=== PATIENT | female | born 1940 | race Caucasian/White ===

== ENCOUNTER 2017-08-24 21:33 | Inpatient (IN) | payer MEDICARE, MEDICAID ==
[2017-08-24] MEDS ORDERED: Furosemide 20 MG/2 ML VIAL ONE (21:36)
[2017-08-24] MEDS ORDERED: Furosemide 40 MG/4 ML VIAL IVPUSH ONE (21:41)
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
[2017-08-24] MEDS: Sodium Chloride 0.9% 10 ML Syringe FLUSH PRN ×2 (22:10→22:11)
[2017-08-24] MEDS ORDERED: Albuterol/Ipratropium 3.0-0.5 MG/3 ML Neb Soln NEB ONE (22:43)
[2017-08-24] MEDS ORDERED: cefTRIAXone 1 GM in Sodium Chloride 0.9% 100 ML IV SCH (23:45)
[2017-08-25] MEDS ORDERED: Ibuprofen 400 MG Tab PO PRN (00:04)
[2017-08-25] MEDS ORDERED: Magnesium Hydroxide 400 MG/5 ML Susp 30 ML Cup PO PRN (00:04)
[2017-08-25] MEDS ORDERED: RISPERIDONE PO SCH (00:15)
[2017-08-25] MEDS ORDERED: Multivitamin Tab PO SCH (00:15)
[2017-08-25] MEDS ORDERED: Acetaminophen 325 MG Tab PO SCH (00:15)
[2017-08-25] MEDS: Sodium Chloride 0.9% 10 ML Syringe FLUSH PRN ×2 (00:17→02:55)
[2017-08-25] MEDS ORDERED: Acetaminophen 325 MG Tab PO PRN (01:30)
[2017-08-25] MEDS: cefTRIAXone 1 GM in Sodium Chloride 0.9% 100 ML IV SCH ×2 (02:53→13:07)
[2017-08-25] MEDS: Acetaminophen 325 MG Tab PO SCH ×4 (07:39→17:27)
[2017-08-25] MEDS: QUEtiapine 100 MG Tab PO SCH ×4 (07:40→20:25)
[2017-08-25] MEDS: levETIRAcetam 500 MG Tab PO SCH ×3 (07:40→17:28)
[2017-08-25] MEDS: Multivitamin Tab PO SCH ×2 (07:41→07:57)
[2017-08-25] MEDS: Potassium Chloride 10 MEQ Tab.ER PO SCH ×2 (07:41→07:55)
[2017-08-25] MEDS: Pantoprazole 40 MG Tab.CR PO SCH ×2 (07:41→07:55)
[2017-08-25] MEDS: Gabapentin 100 MG Cap PO SCH ×4 (07:41→17:28)
[2017-08-25] MEDS ORDERED: Non-Formulary Medication 1 Each (Ranitidine Hcl [Zantac] 150 MG) PO SCH (08:00)
[2017-08-25] MEDS: LACOSAMIDE 50 MG PO SCH ×2 (09:00→17:29)
[2017-08-25] MEDS: Sodium Chloride 0.9% 1,000 ML IV SCH ×2 (10:03→17:15)
--- NOTE | 2017-08-25 10:21 | PCM.PN ---
- General Info Date of Service: 08/25/17 Functional Status: Reports: Other (Shortness of breath) - Review of Systems General: Reports: Weakness HEENT: Reports: No Symptoms Pulmonary: Reports: Shortness of Breath Cardiovascular: Reports: Orthopnea Gastrointestinal: Reports: No Symptoms Genitourinary: Reports: No Symptoms Musculoskeletal: Reports: No Symptoms, Shoulder Pain (Right humeral fracture), Foot Pain Skin: Reports: No Symptoms Neurological: Reports: Confusion Psychiatric: Reports: Confusion, Anxiety - Patient Data Vitals - Most Recent: Last Vital Signs Temp 99.1 F 08/25/17 08:00 Pulse 115 H 08/25/17 08:00 Resp 16 08/25/17 04:30 BP 76/53 L 08/25/17 08:00 Pulse Ox 97 08/25/17 09:00 Weight - Most Recent: 136 lb 0.015 oz I&O - Last 24 Hours: Intake & Output 08/24/17 08/25/17 08/25/17 22:59 06:59 14:59 Intake Total 370 Output Total 1200 Balance -830 Lab Results Last 24 Hours: Laboratory Results - last 24 hr 08/25/17 Range/Units 07:35 WBC 19.1 H (4.0-10.2) K/uL RBC 3.74 L (3.77-5.09) M/uL Hgb 12.1 (11.7-15.5) g/dL Hct 37.1 (34.0-46.0) % MCV 99.2 H (84.0-98.0) fL MCH 32.4 (28.2-33.3) pg MCHC 32.6 (31.7-36.0) g/dL RDW 13.6 (11.2-14.1) % Plt Count 256 (150-350) K/uL Neut % (Auto) 86.9 H (45.0-80.0) % Lymph % (Auto) 7.6 L (10.0-50.0) % [place] % (Auto) 5.3 (2.0-14.0) % Eos % (Auto) 0.1 (0.0-5.0) % Baso % (Auto) 0.1 (0.0-2.0) % Neut # (Auto) 16.60 H (1.40-7.00) K/uL Lymph # (Auto) 1.44 (0.50-3.50) K/uL [place] # (Auto) 1.01 H (0.00-1.00) K/uL Eos # (Auto) 0.01 (0.00-0.50) K/uL Baso # (Auto) 0.01 (0.00-0.20) K/uL Med Orders - Current: Current Medications Acetaminophen (Tylenol) 650 mg PO TID [facility] Last Admin: 08/25/17 07:57 Dose: Not Given Acetaminophen (Tylenol) 650 mg PO Q4H PRN PRN Reason: Pain/Fever Gabapentin (Neurontin) 100 mg PO TID [facility] Last Admin: 08/25/17 07:55 Dose: Not Given Ceftriaxone Sodium 1 gm/ (Sodium Chloride) 100 mls @ 200 mls/hr IV Q12H [facility] Last Admin: 08/25/17 02:53 Dose: 200 mls/hr Vancomycin HCl 1 gm/ Sodium (Chloride) 250 mls @ 165 mls/hr IV Q24H [facility] Sodium Chloride (Normal Saline) 1,000 mls @ 150 mls/hr IV ASDIRECTED [facility] Last Admin: 08/25/17 10:03 Dose: 150 mls/hr Ibuprofen (Motrin) 400 mg PO Q6H PRN PRN Reason: Pain Levetiracetam (Keppra) 1,000 mg PO BID [facility] Last Admin: 08/25/17 07:55 Dose: Not Given Magnesium Hydroxide (Milk Of Magnesia) 30 ml PO DAILY PRN PRN Reason: Heartburn Multivitamins/Minerals/Vitamin C (Tab-A-Vitaliy) 1 tab PO DAILY [facility] Last Admin: 08/25/17 07:57 Dose: Not Given Non-Formulary Medication (Lacosamide [Vimpat]) 50 mg PO BID [facility] Non-Formulary Medication (Lurasidone Hcl [Latuda]) 80 mg PO BEDTIME [facility] Pantoprazole Sodium (Protonix) 40 mg PO DAILY [facility] Last Admin: 08/25/17 07:55 Dose: Not Given Polyethylene Glycol (Miralax) 17 gm PO BEDTIME [facility] Potassium Chloride (Klor-Con 10) 10 meq PO DAILY [facility] Last Admin: 08/25/17 07:55 Dose: Not Given Quetiapine Fumarate (Seroquel) 100 mg PO BID [facility] Last Admin: 08/25/17 07:56 Dose: Not Given Quetiapine Fumarate (Seroquel) 300 mg PO BEDTIME [facility] Sodium Chloride (Saline Flush) 10 ml FLUSH ASDIRECTED PRN PRN Reason: Keep Vein Open Last Admin: 08/25/17 02:55 Dose: 10 ml Vancomycin HCl (Pharmacy To Dose - Vancomycin) 1 dose .XX ASDIRECTED [facility] Discontinued Medications Albuterol/Ipratropium (Duoneb 3.0-0.5 Mg/3 Ml) 3 ml NEB ONETIME ONE Stop: 08/24/17 22:44 Last Admin: 08/24/17 23:02 Dose: 3 ml Furosemide (Lasix) Confirm Administered Dose 20 mg .ROUTE .STK-MED ONE Stop: 08/24/17 21:37 Last Admin: 08/24/17 21:39 Dose: 10 mg Furosemide (Lasix) 40 mg IVPUSH NOW ONE Stop: 08/24/17 21:42 Last Admin: 08/24/17 21:53 Dose: 30 mg Ceftriaxone Sodium 1 gm/ (Sodium Chloride) 100 mls @ 200 mls/hr IV Q12H [facility] Last Admin: 08/25/17 03:07 Dose: Not Given Vancomycin HCl 1 gm/ Sodium (Chloride) 250 mls @ 165 mls/hr IV ONETIME ONE Stop: 08/25/17 01:30 Last Admin: 08/25/17 00:16 Dose: 165 mls/hr Multivitamins/Minerals/Vitamin C (Tab-A-Vitaliy) 1 tab PO DAILY [facility] Last Admin: 08/25/17 03:10 Dose: Not Given Non-Formulary Medication (Ranitidine Hcl [Zantac]) 150 mg PO BID [facility] - Exam Quality Assessment: Supplemental Oxygen, Urine Catheter General: Mild Distress HEENT: Pupils Equal, Pupils Reactive, EOMI, Mucous Membr. Moist/[place] Neck: Supple Lungs: Decreased Breath Sounds, Rales (In basis) Cardiovascular: Regular Rate, Regular Rhythm, No Murmurs GI/Abdominal Exam: Normal Bowel Sounds (Female) Exam: Deferred Back Exam: Normal Inspection, Full Range of Motion Extremities: Normal Inspection, Normal Range of Motion, Non-Tender, No Pedal Edema, Normal Capillary Refill Skin: Warm, Dry, Intact Neurological: Cranial Nerves Intact Psy/Mental Status: Anxious, Agitated (Secondary to shortness of breath) - Problem List & Annotations (1) CHF (congestive heart failure) SNOMED Code(s): 59416485 Code(s): I50.9 - HEART FAILURE, UNSPECIFIED Status: Acute Priority: Low Current Visit: Yes Annotation/Comment:: Acute on chronic improve with diuresis chest x-ray revealed pneumonia white count elevated patient started on Lasix and antibiotic for comfort care patient is hypotensive secondary to possible sepsis (2) Pneumonia SNOMED Code(s): 982070586 Code(s): J18.9 - PNEUMONIA, UNSPECIFIED ORGANISM Status: Acute Current Visit: Yes Qualifiers: Pneumonia type: due to unspecified organism Annotation/Comment:: Patient x-ray revealed bilateral basal pneumonia antibiotic started for comfort care patient has severe hypoxia also placed on oxygen for comfort care patient also has hypoxia and hypotension as cold morbidity (3) Hypoxemia SNOMED Code(s): 754392553 Code(s): R09.02 - HYPOXEMIA Status: Acute Current Visit: Yes Annotation /Comment:: Hypoxia secondary to CHF and pneumonia patient diuresed and started on antibiotics - Problem List Review Problem List Initiated/Reviewed/Updated: Yes - My Orders Last 24 Hours: My Active Orders 08/25/17 00:01 Patient Status [ADT] Routine Vital Signs [RC] Q4HR 08/25/17 00:04 Ibuprofen [Motrin] 400 mg PO Q6H PRN Magnesium Hydroxide [Milk of Magnesia] 30 ml PO DAILY PRN 08/25/17 01:00 cefTRIAXone [Rocephin] 1 gm Sodium Chloride 0.9% [Normal Saline] 100 ml IV Q12H 08/25/17 01:19 Telemetry Monitoring [Cardiac Monitoring] [RC] Q2HR Code Status [Resuscitation Status] Routine 08/25/17 01:30 Acetaminophen [Tylenol] 650 mg PO Q4H PRN 08/25/17 08:00 Acetaminophen [Tylenol] 650 mg PO TID Gabapentin [Neurontin] 100 mg PO TID Lacosamide [Vimpat] 50 mg PO BID Multivitamins [Tab-A-Vitaliy] 1 tab PO DAILY Pantoprazole [ProTONIX] 40 mg PO DAILY Potassium Chloride [Klor-Con 10] 10 meq PO DAILY QUEtiapine [SEROquel] 100 mg PO BID levETIRAcetam [Keppra] 1,000 mg PO BID 08/25/17 09:15 Sodium Chloride 0.9% [Normal Saline] 1,000 ml IV ASDIRECTED 08/25/17 12:00 POC Glucose [Blood Glucose Check, Bedside] [RC] QIDACANDBED 08/25/17 20:00 Lurasidone HCl [Latuda] 80 mg PO BEDTIME Polyethylene Glycol 3350 [MiraLAX] 17 gm PO BEDTIME QUEtiapine [SEROquel] 300 mg PO BEDTIME 08/25/17 21:00 Vancomycin 1 gm Sodium Chloride 0.9% [Normal Saline] 250 ml IV Q24H 08/25/17 Breakfast Regular Diet [DIET]
[2017-08-25] MEDS: LURASIDONE HCL 80 MG PO SCH (20:25)
[2017-08-25] MEDS: Polyethylene Glycol 3350 Powder 17 GM Packet PO SCH ×2 (20:26→20:37)
[2017-08-26] MEDS: cefTRIAXone 1 GM in Sodium Chloride 0.9% 100 ML IV SCH ×2 (01:09→12:39)
[2017-08-26] MEDS: Sodium Chloride 0.9% 1,000 ML IV SCH (02:09)
[2017-08-26] MEDS: Potassium Chloride 10 MEQ Tab.ER PO SCH (09:12)
[2017-08-26] MEDS: levETIRAcetam 500 MG Tab PO SCH ×2 (09:12→18:01)
[2017-08-26] MEDS: Gabapentin 100 MG Cap PO SCH ×3 (09:12→18:02)
[2017-08-26] MEDS: Pantoprazole 40 MG Tab.CR PO SCH (09:12)
[2017-08-26] MEDS: LACOSAMIDE 50 MG PO SCH ×2 (09:12→18:02)
[2017-08-26] MEDS: QUEtiapine 100 MG Tab PO SCH ×2 (09:13→20:50)
[2017-08-26] MEDS: Acetaminophen 325 MG Tab PO SCH ×3 (09:13→18:02)
[2017-08-26] MEDS: Sodium Chloride 0.9% 10 ML Syringe FLUSH PRN ×3 (09:13→20:53)
[2017-08-26] MEDS: Multivitamin Tab PO SCH (09:13)
[2017-08-26] MEDS ORDERED: Sodium Chloride 0.9% 1,000 ML IV SCH (09:15)
--- NOTE | 2017-08-26 10:07 | PCM.PN ---
- General Info Date of Service: 08/26/17 Admission Dx/Problem (Free Text): CHF Subjective Update: Patient is an extremely poor historian secondary to her baseline organic brain syndrome Functional Status: Reports: Pain Controlled, Tolerating Diet (Although some possible aspiration), Urinating, New Symptoms (Aspiration as above). Denies: Ambulating, Incentive Spirometry Pain Score: 0 - Review of Systems General: Reports: Weakness (Stable chronic). Denies: Fever, Fatigue, Malaise, Chills, Night Sweats HEENT: Reports: No Symptoms Pulmonary: Reports: Cough. Denies: Shortness of Breath, Pleuritic Chest Pain, Sputum, Hemoptysis, Wheezing Cardiovascular: Reports: Edema (Dependent) Gastrointestinal: Reports: No Symptoms Genitourinary: Reports: Incontinence Musculoskeletal: Reports: No Symptoms Skin: Reports: No Symptoms. Denies: Diaphoresis, Bruising Neurological: Reports: Confusion (Stable moderate to severe), Weakness (Stable generalized) Psychiatric: Reports: Confusion (As above), Depression (Stable), Anxiety (Stable ). Denies: Agitation, Hallucinations - Patient Data Vitals - Most Recent: Last Vital Signs Temp 36.8 C 08/26/17 08:00 Pulse 57 L 08/26/17 08:00 Resp 21 H 08/26/17 08:00 BP 91/41 L 08/26/17 08:00 Pulse Ox 98 08/26/17 08:00 Vital Signs - 24 hr 08/25/17 08/25/17 08/25/17 10:55 12:00 13:39 Temperature [ Axillary] Temperature [ Oral] Temperature [ 37.5 C Temporal] Pulse, 114 H Peripheral [ Right Pulse Oximetry] Respiratory 24 H Rate Blood Pressure 96/53 L [Left Upper Arm ] O2 Sat by Pulse 95 92 L 99 Oximetry 08/25/17 08/25/17 08/25/17 16:00 18:01 20:00 Temperature [ 36.8 C Axillary] Temperature [ 37.3 C Oral] Temperature [ Temporal] Pulse, 106 H 102 H Peripheral [ Right Pulse Oximetry] Respiratory 18 22 H 20 Rate Blood Pressure 114/58 L 101/56 L [Left Upper Arm ] O2 Sat by Pulse 94 L 92 L 95 Oximetry 08/26/17 08/26/17 08/26/17 00:00 04:00 08:00 Temperature [ Axillary] Temperature [ 36.6 C 36.8 C Oral] Temperature [ 36.9 C Temporal] Pulse, 95 86 57 L Peripheral [ Right Pulse Oximetry] Respiratory 24 H 20 21 H Rate Blood Pressure 99/49 L 95/51 L 91/41 L [Left Upper Arm ] O2 Sat by Pulse 95 97 98 Oximetry Weight - Most Recent: 61.689 kg I&O - Last 24 Hours: Intake & Output 08/25/17 08/26/17 08/26/17 22:59 06:59 14:59 Intake Total 510 1865 Output Total 500 Balance 510 1365 Imaging Impressions - Last 24 Hours: vehicle monitor technician shows normal sinus rhythm in the 80s to 100s with no ectopy or arrhythmia Lab Results Last 24 Hours: Laboratory Results - last 24 hr 08/25/17 08/25/17 08/26/17 Range/Units 07:35 22:06 07:51 Sodium 144 (136-145) mmol/L Potassium 3.2 L (3.5-5.1) mmol/L Chloride 110 H (98-107) mmol/L Carbon Dioxide 22.8 (21.0-32.0) mmol/L BUN 36 H (7-18) mg/dL Creatinine 0.97 (0.51-1.17) mg/dL Est Cr Clr Drug Dosing 35.44 mL/min Estimated GFR (MDRD) 56 mL/min Glucose 133 H (74-106) mg/dL POC Glucose 117 H 84 (65-110) mg/dl Calcium 8.9 (8.5-10.1) mg/dL Laboratory Tests 08/24/17 08/24/17 08/24/17 Range/Units 21:45 21:45 21:45 WBC 12.2 H (4.0-10.2) K/uL RBC 3.54 L (3.77-5.09) M/uL Hgb 11.5 L D (11.7-15.5) g/dL Hct 35.5 (34.0-46.0) % MCV 100.3 H D (84.0-98.0) fL MCH 32.5 (28.2-33.3) pg MCHC 32.4 (31.7-36.0) g/dL RDW 13.5 (11.2-14.1) % Plt Count 258 (150-350) K/uL Neut % (Auto) 80.9 H (45.0-80.0) % Lymph % (Auto) 12.7 (10.0-50.0) % [place] % (Auto) 5.2 (2.0-14.0) % Eos % (Auto) 1.1 (0.0-5.0) % Baso % (Auto) 0.1 (0.0-2.0) % Neut # (Auto) 9.88 H (1.40-7.00) K/uL Lymph # (Auto) 1.55 (0.50-3.50) K/uL [place] # (Auto) 0.63 (0.00-1.00) K/uL Eos # (Auto) 0.13 (0.00-0.50) K/uL Baso # (Auto) 0.01 (0.00-0.20) K/uL D-Dimer, Quantitative 296 (0-400) ng/mL Sodium (136-145) mmol/L Potassium (3.5-5.1) mmol/L Chloride (98-107) mmol/L Carbon Dioxide (21.0-32.0) mmol/L BUN (7-18) mg/dL Creatinine (0.51-1.17) mg/dL Est Cr Clr Drug Dosing mL/min Estimated GFR (MDRD) mL/min Glucose (74-106) mg/dL POC Glucose (65-110) mg/dl Calcium (8.5-10.1) mg/dL Total Bilirubin (0.2-1.0) mg/dL AST (15-37) U/L ALT (12-78) U/L Alkaline Phosphatase (46-116) IU/L Troponin I (0.000-0.056) ng/mL NT-Pro-B Natriuret Pep (0-125) pg/mL Total Protein (6.4-8.2) g/dL Albumin (3.4-5.0) g/dL Specimen Type Urine Color Urine Appearance Urine pH (5.0-9.0) Ur Specific [place] (1.005-1.030) Urine Protein (NEGATIVE) mg/dL Urine Glucose (UA) (NEGATIVE) mg/dL Urine Ketones (NEGATIVE) mg/dL Urine Occult Blood (NEGATIVE) Urine Nitrite (NEGATIVE) Urine Bilirubin (NEGATIVE) Urine Urobilinogen (0.2-1.0) E.U./dL Ur Leukocyte Esterase (NEGATIVE) Urine RBC /HPF Urine WBC /HPF Ur Epithelial Cells /LPF Urine Bacteria (NONE TO FEW) /HPF 08/24/17 08/24/17 08/25/17 Range/Units 21:45 22:18 07:35 WBC (4.0-10.2) K/uL RBC (3.77-5.09) M/uL Hgb (11.7-15.5) g/dL Hct (34.0-46.0) % MCV (84.0-98.0) fL MCH (28.2-33.3) pg MCHC (31.7-36.0) g/dL RDW (11.2-14.1) % Plt Count (150-350) K/uL Neut % (Auto) (45.0-80.0) % Lymph % (Auto) (10.0-50.0) % [place] % (Auto) (2.0-14.0) % Eos % (Auto) (0.0-5.0) % Baso % (Auto) (0.0-2.0) % Neut # (Auto) (1.40-7.00) K/uL Lymph # (Auto) (0.50-3.50) K/uL [place] # (Auto) (0.00-1.00) K/uL Eos # (Auto) (0.00-0.50) K/uL Baso # (Auto) (0.00-0.20) K/uL D-Dimer, Quantitative (0-400) ng/mL Sodium 144 (136-145) mmol/L Potassium 3.2 L (3.5-5.1) mmol/L Chloride 110 H (98-107) mmol/L Carbon Dioxide 22.8 (21.0-32.0) mmol/L BUN 36 H (7-18) mg/dL Creatinine 0.97 (0.51-1.17) mg/dL Est Cr Clr Drug Dosing 35.44 mL/min Estimated GFR (MDRD) 56 mL/min Glucose 133 H (74-106) mg/dL POC Glucose (65-110) mg/dl Calcium 8.9 (8.5-10.1) mg/dL Total Bilirubin (0.2-1.0) mg/dL AST (15-37) U/L ALT (12-78) U/L Alkaline Phosphatase (46-116) IU/L Troponin I (0.000-0.056) ng/mL NT-Pro-B Natriuret Pep (0-125) pg/mL Total Protein (6.4-8.2) g/dL Albumin (3.4-5.0) g/dL Specimen Type [place] Urine Color Yellow Urine Appearance Cloudy Urine pH 6.0 (5.0-9.0) Ur Specific [place] 1.025 (1.005-1.030) Urine Protein 30 H (NEGATIVE) mg/dL Urine Glucose (UA) Negative (NEGATIVE) mg/dL Urine Ketones 15 H (NEGATIVE) mg/dL Urine Occult Blood Small H (NEGATIVE) Urine Nitrite Negative (NEGATIVE) Urine Bilirubin Negative (NEGATIVE) Urine Urobilinogen 0.2 (0.2-1.0) E.U./dL Ur Leukocyte Esterase Small H (NEGATIVE) Urine RBC 5-10 H /HPF Urine WBC 20-30 H /HPF Ur Epithelial Cells Moderate H /LPF Urine Bacteria Many H (NONE TO FEW) /HPF 08/25/17 08/25/17 08/26/17 Range/Units 07:35 22:06 07:51 WBC 19.1 H (4.0-10.2) K/uL RBC 3.74 L (3.77-5.09) M/uL Hgb 12.1 (11.7-15.5) g/dL Hct 37.1 (34.0-46.0) % MCV 99.2 H (84.0-98.0) fL MCH 32.4 (28.2-33.3) pg MCHC 32.6 (31.7-36.0) g/dL RDW 13.6 (11.2-14.1) % Plt Count 256 (150-350) K/uL Neut % (Auto) 86.9 H (45.0-80.0) % Lymph % (Auto) 7.6 L (10.0-50.0) % [place] % (Auto) 5.3 (2.0-14.0) % Eos % (Auto) 0.1 (0.0-5.0) % Baso % (Auto) 0.1 (0.0-2.0) % Neut # (Auto) 16.60 H (1.40-7.00) K/uL Lymph # (Auto) 1.44 (0.50-3.50) K/uL [place] # (Auto) 1.01 H (0.00-1.00) K/uL Eos # (Auto) 0.01 (0.00-0.50) K/uL Baso # (Auto) 0.01 (0.00-0.20) K/uL D-Dimer, Quantitative (0-400) ng/mL Sodium (136-145) mmol/L Potassium (3.5-5.1) mmol/L Chloride (98-107) mmol/L Carbon Dioxide (21.0-32.0) mmol/L BUN (7-18) mg/dL Creatinine (0.51-1.17) mg/dL Est Cr Clr Drug Dosing mL/min Estimated GFR (MDRD) mL/min Glucose (74-106) mg/dL POC Glucose 117 H 84 (65-110) mg/dl Calcium (8.5-10.1) mg/dL Total Bilirubin (0.2-1.0) mg/dL AST (15-37) U/L ALT (12-78) U/L Alkaline Phosphatase (46-116) IU/L Troponin I (0.000-0.056) ng/mL NT-Pro-B Natriuret Pep (0-125) pg/mL Total Protein (6.4-8.2) g/dL Albumin (3.4-5.0) g/dL Specimen Type Urine Color Urine Appearance Urine pH (5.0-9.0) Ur Specific [place] (1.005-1.030) Urine Protein (NEGATIVE) mg/dL Urine Glucose (UA) (NEGATIVE) mg/dL Urine Ketones (NEGATIVE) mg/dL Urine Occult Blood (NEGATIVE) Urine Nitrite (NEGATIVE) Urine Bilirubin (NEGATIVE) Urine Urobilinogen (0.2-1.0) E.U./dL Ur Leukocyte Esterase (NEGATIVE) Urine RBC /HPF Urine WBC /HPF Ur Epithelial Cells /LPF Urine Bacteria (NONE TO FEW) /HPF [facility] Results Last 24 Hours: Microbiology 08/24/17 01:15 Blood - Venous - Lab Draw Aerobic Blood Culture - Preliminary NO GROWTH AFTER 1 DAY 08/24/17 01:15 Blood - Venous - Lab Draw Anaerobic Blood Culture - Preliminary NO GROWTH AFTER 1 DAY 08/24/17 00:45 Blood - Venous Aerobic Blood Culture - Preliminary NO GROWTH AFTER 1 DAY 08/24/17 00:45 Blood - Venous Anaerobic Blood Culture - Preliminary NO GROWTH AFTER 1 DAY Med Orders - Current: Current Medications Acetaminophen (Tylenol) 650 mg PO TID [facility] Last Admin: 08/26/17 09:13 Dose: 650 mg Acetaminophen (Tylenol) 650 mg PO Q4H PRN PRN Reason: Pain/Fever Gabapentin (Neurontin) 100 mg PO TID [facility] Last Admin: 08/26/17 09:12 Dose: 100 mg Ceftriaxone Sodium 1 gm/ (Sodium Chloride) 100 mls @ 200 mls/hr IV Q12H [facility] Last Admin: 08/26/17 01:09 Dose: 200 mls/hr Vancomycin HCl 1 gm/ Sodium (Chloride) 250 mls @ 165 mls/hr IV Q24H [facility] Last Admin: 08/25/17 20:26 Dose: 165 mls/hr Sodium Chloride (Normal Saline) 1,000 mls @ 150 mls/hr IV ASDIRECTED [facility] Last Admin: 08/26/17 02:09 Dose: 150 mls/hr Ibuprofen (Motrin) 400 mg PO Q6H PRN PRN Reason: Pain Levetiracetam (Keppra) 1,000 mg PO BID [facility] Last Admin: 08/26/17 09:12 Dose: 1,000 mg Magnesium Hydroxide (Milk Of Magnesia) 30 ml PO DAILY PRN PRN Reason: Heartburn Multivitamins/Minerals/Vitamin C (Tab-A-Vitaliy) 1 tab PO DAILY [facility] Last Admin: 08/26/17 09:13 Dose: 1 tab Lacosamide [Vimpat] (50 Mg Tablets) 50 mg PO BID [facility] Last Admin: 08/26/17 09:12 Dose: 50 mg Lurasidone Hcl [ Latuda] 80 Mg Tablets 80 mg PO BEDTIME [facility] Last Admin: 08/25/17 20:25 Dose: 80 mg Pantoprazole Sodium (Protonix) 40 mg PO DAILY [facility] Last Admin: 08/26/17 09:12 Dose: 40 mg Polyethylene Glycol (Miralax) 17 gm PO BEDTIME [facility] Last Admin: 08/25/17 20:37 Dose: Not Given Potassium Chloride (Klor-Con 10) 10 meq PO DAILY [facility] Last Admin: 08/26/17 09:12 Dose: 10 meq Quetiapine Fumarate (Seroquel) 100 mg PO BID [facility] Last Admin: 08/26/17 09:13 Dose: 100 mg Quetiapine Fumarate (Seroquel) 300 mg PO BEDTIME [facility] Last Admin: 08/25/17 20:25 Dose: 300 mg Sodium Chloride (Saline Flush) 10 ml FLUSH ASDIRECTED PRN PRN Reason: Keep Vein Open Last Admin: 08/26/17 09:13 Dose: 10 ml Vancomycin HCl (Pharmacy To Dose - Vancomycin) 1 dose .XX ASDIRECTED [facility] Discontinued Medications Albuterol/Ipratropium (Duoneb 3.0-0.5 Mg/3 Ml) 3 ml NEB ONETIME ONE Stop: 08/24/17 22:44 Last Admin: 08/24/17 23:02 Dose: 3 ml Furosemide (Lasix) Confirm Administered Dose 20 mg .ROUTE .STK-MED ONE Stop: 08/24/17 21:37 Last Admin: 08/24/17 21:39 Dose: 10 mg Furosemide (Lasix) 40 mg IVPUSH NOW ONE Stop: 08/24/17 21:42 Last Admin: 08/24/17 21:53 Dose: 30 mg Ceftriaxone Sodium 1 gm/ (Sodium Chloride) 100 mls @ 200 mls/hr IV Q12H [facility] Last Admin: 08/25/17 03:07 Dose: Not Given Vancomycin HCl 1 gm/ Sodium (Chloride) 250 mls @ 165 mls/hr IV ONETIME ONE Stop: 08/25/17 01:30 Last Admin: 08/25/17 00:16 Dose: 165 mls/hr Multivitamins/Minerals/Vitamin C (Tab-A-Vitaliy) 1 tab PO DAILY [facility] Last Admin: 08/25/17 03:10 Dose: Not Given Non-Formulary Medication (Ranitidine Hcl [Zantac]) 150 mg PO BID [facility] - Exam Quality Assessment: Supplemental Oxygen, Urine Catheter, DVT Prophylaxis. No: Skin Breakdown, Restraints General: Alert, Cooperative, No Acute Distress HEENT: Pupils Equal, Pupils Reactive, EOMI, Mucous Membr. Moist/[place] Neck: Supple, Trachea Midline, No JVD, No Thyromegaly, +2 Carotid Pulse wo Bruit (Mild bilateral carotid bruits). No: Lymphadenopathy Lungs: Normal Respiratory Effort, Rales (Mild to moderate bilateral basilar), Wheezing (Occasional diffuse bilateral). No: Rhonchi, Rub Cardiovascular: Regular Rate, Regular Rhythm, No Murmurs. No: Gallops, Rubs GI/Abdominal Exam: Normal Bowel Sounds, Soft, Non-Tender, No Organomegaly, No Distention, No Abnormal Bruit, No Mass, Pelvis Stable, Other (Obese) (Female) Exam: Deferred Back Exam: Normal Inspection, Full Range of Motion. No: CVA Tenderness (L), CVA Tenderness (R), Muscle Spasm Extremities: Normal Range of Motion, Non-Tender, Normal Capillary Refill, Pedal Edema (Bilateral pedal edemamild) Peripheral Pulses: 2+: Radial (L), Radial (R), Dorsalis Pedis (L), Dorsalis Pedis (R) Skin: Warm, Dry, Intact Neurological: No New Focal Deficit Psy/Mental Status: Alert, Anxious (Mild), Depressed (Mild), Agitated (Occasional ). No: Hallucinations, Withdrawal Symptoms - Problem List & Annotations (1) Pneumonia SNOMED Code(s): 746107402 Code(s): J18.9 - PNEUMONIA, UNSPECIFIED ORGANISM Status: Acute Priority: High Current Visit: Yes Onset Date: Unknown Qualifiers: Pneumonia type: aspiration pneumonia Laterality: bilateral Lung location : lower lobe of lung Annotation/Comment:: Based on history of dysphagia suspect aspiration pneumonia. Continue current IV Rocephin and vancomycin therapy. Attempt to obtain sputum. Previous x-ray revealed bilateral basal pneumonia, although note history of CHF as below. Continue to observe blood pressure closely secondary to some hypotension with only one dose of IV Lasix given today. Initiate nebulizer therapy (2) CHF (congestive heart failure) SNOMED Code(s): 70397579 Code(s): I50.9 - HEART FAILURE, UNSPECIFIED Status: Acute Priority: High Current Visit: Yes Qualifiers: Congestive heart failure type: unspecified congestive heart failure type Congestive heart failure chronicity: acute on chronic Qualified Code(s): I50.9 - Heart failure, unspecified Annotation/Comment:: No chest pain or anginal complaints. No further cardiac workup, including echocardiogram, cardiology consultation, etc. Acute on chronic CHF by history with repeat blood work and chest x-ray in the a.m. IV Lasix today with possible continuation tomorrow per Dr. Pablo, who will resume care at that time. IV fluids will be discontinued secondary to her CHF with additional decrease of her Seroquel therapy for the same reason. Long-term prognosis extremely poor (3) Dysphagia SNOMED Code(s): 82641936 Code(s): R13.10 - DYSPHAGIA, UNSPECIFIED Status: Acute Priority: High Current Visit: Yes Onset Date: ~08/26/17 Qualifiers: Dysphagia type: unspecified Qualified Code(s): R13.10 - Dysphagia, unspecified Annotation/Comment:: Some evidence of dysphagia per nursing staff this morning. Patient started on a dysphagia diet with aspiration precautions. Secondary to her comfort care status only no extensive further workup, including swallowing studies, speech therapy consultation, etc. for now (4) Comfort measures only status SNOMED Code(s): 22841203272323 Code(s): Z51.5 - ENCOUNTER FOR PALLIATIVE CARE Status: Chronic Priority: Medium Current Visit: Yes Annotation/Comment:: As above (5) Diabetes mellitus SNOMED Code(s): 23092013 Code(s): E11.9 - TYPE 2 DIABETES MELLITUS WITHOUT COMPLICATIONS Status: Acute Current Visit: Yes Qualifiers: Diabetes mellitus type: type 2 Diabetes mellitus complication status: without complication Diabetes mellitus intermediate insulin use: without computer terminal operator use Qualified Code(s): E11.9 - Type 2 diabetes mellitus without complications Annotation/Comment:: Accu-Cheks stable (6) Dementia SNOMED Code(s): 67983894 Code(s): F03.90 - UNSPECIFIED DEMENTIA WITHOUT BEHAVIORAL DISTURBANCE Status: Chronic Priority: Medium Current Visit: Yes Qualifiers: Dementia type: unspecified type Dementia behavioral disturbance: with behavioral disturbance Qualified Code(s): F03.91 - Unspecified dementia with behavioral disturbance (7) Peptic reflux disease SNOMED Code(s): 96494543 Code(s): K21.9 - GASTRO-ESOPHAGEAL REFLUX DISEASE WITHOUT ESOPHAGITIS Status: Chronic Priority: Medium Current Visit: Yes Annotation/Comment:: No recent abdominal pain or evidence of GI bleed. Continue current medical therapy (8) Hypokalemia SNOMED Code(s): 32542855 Code(s): E87.6 - HYPOKALEMIA Status: Acute Priority: High Current Visit : Yes Onset Date: 08/24/17 Annotation/Comment:: Initiate potassium chloride. Labs in the a.m. (9) UTI (urinary tract infection) SNOMED Code(s): 70857354 Code(s): N39.0 - URINARY TRACT INFECTION, SITE NOT SPECIFIED Status: Acute Priority: Medium Current Visit: Yes Onset Date: ~08/24/17 Qualifiers: Urinary tract infection type: acute cystitis Hematuria presence: without hematuria Qualified Code(s): N30.00 - Acute cystitis without hematuria Annotation/Comment:: Possible UTI, however note contamination by culture. Patient is urinary incontinent. Note Rocephin and vancomycin therapy as above - Problem List Review Problem List Initiated/Reviewed/Updated: Yes - Assessment Assessment:: As above - Plan Plan:: As above. Extensive precautions were given to the patient, who is in agreement with the treatment plan.
[2017-08-26] MEDS ORDERED: Albuterol/Ipratropium 3.0-0.5 MG/3 ML Neb Soln NEB PRN (11:38)
[2017-08-26] MEDS ORDERED: Furosemide 40 MG/4 ML VIAL IVPUSH ONE (11:39)
[2017-08-26] MEDS ORDERED: Potassium Chloride 20 MEQ Tab.ER PO ONE (11:40)
[2017-08-26] MEDS ORDERED: Albuterol 0.083% 2.5 MG/3 ML Neb Soln INH PRN (12:00)
[2017-08-26] MEDS: Enoxaparin 30 MG/0.3 ML Syringe SUBCUT SCH (12:37)
[2017-08-26] MEDS ORDERED: Pneumococcal Polyvalent-23 Vaccine 0.5 ML SDV IM ONE (13:03)
[2017-08-26] MEDS: Albuterol/Ipratropium 3.0-0.5 MG/3 ML Neb Soln NEB SCH ×2 (14:22→20:50)
[2017-08-26] MEDS: Potassium Chloride 20 MEQ Tab.ER PO SCH (18:01)
[2017-08-26] MEDS: Polyethylene Glycol 3350 Powder 17 GM Packet PO SCH (20:49)
[2017-08-26] MEDS: LURASIDONE HCL 80 MG PO SCH (20:49)
[2017-08-27] MEDS: cefTRIAXone 1 GM in Sodium Chloride 0.9% 100 ML IV SCH ×2 (01:45→12:59)
[2017-08-27] MEDS: Sodium Chloride 0.9% 10 ML Syringe FLUSH PRN ×3 (01:49→21:33)
[2017-08-27] MEDS: Albuterol/Ipratropium 3.0-0.5 MG/3 ML Neb Soln NEB SCH ×4 (01:49→21:31)
[2017-08-27 07:53] LABS: CHLORIDE,CL 113 mmol/L (98-107); SODIUM,NA 149 mmol/L (136-145)
[2017-08-27] MEDS: LACOSAMIDE 50 MG PO SCH ×3 (07:55→17:22)
[2017-08-27] MEDS: Multivitamin Tab PO SCH ×2 (07:55→09:00)
[2017-08-27] MEDS: levETIRAcetam 500 MG Tab PO SCH ×3 (07:55→17:23)
[2017-08-27] MEDS: Acetaminophen 325 MG Tab PO SCH ×4 (07:55→17:23)
[2017-08-27] MEDS: Potassium Chloride 20 MEQ Tab.ER PO SCH ×3 (07:55→17:30)
[2017-08-27] MEDS: Gabapentin 100 MG Cap PO SCH ×4 (07:55→17:23)
[2017-08-27] MEDS: Pantoprazole 40 MG Tab.CR PO SCH ×2 (07:55→09:00)
--- NOTE | 2017-08-27 10:45 | PCM.PN ---
- General Info Date of Service: 08/27/17 Admission Dx/Problem (Free Text): CHF Functional Status: Reports: Other (Hypoxia) - Review of Systems General: Reports: Weakness, Fatigue HEENT: Reports: No Symptoms Pulmonary: Reports: Shortness of Breath Cardiovascular: Reports: Dyspnea on Exertion Gastrointestinal: Reports: No Symptoms Genitourinary: Reports: Other (Patel catheter) Musculoskeletal: Reports: Shoulder Pain (Right) Skin: Reports: No Symptoms Neurological: Reports: No Symptoms Psychiatric: Reports: No Symptoms - Patient Data Vitals - Most Recent: Last Vital Signs Temp 97.5 F 08/27/17 06:00 Pulse 85 08/27/17 06:00 Resp 16 08/27/17 06:00 BP 128/53 L 08/27/17 06:00 Pulse Ox 96 08/27/17 06:00 Weight - Most Recent: 148 lb I&O - Last 24 Hours: Intake & Output 08/26/17 08/27/17 08/27/17 22:59 06:59 14:59 Intake Total 300 90 Output Total 2420 200 Balance -2120 -110 Lab Results Last 24 Hours: Laboratory Results - last 24 hr 08/26/17 08/26/17 08/26/17 Range/Units 12:50 17:18 21:01 WBC (4.0-10.2) K/uL RBC (3.77-5.09) M/uL Hgb (11.7-15.5) g/dL Hct (34.0-46.0) % MCV (84.0-98.0) fL MCH (28.2-33.3) pg MCHC (31.7-36.0) g/dL RDW (11.2-14.1) % Plt Count (150-350) K/uL Neut % (Auto) (45.0-80.0) % Lymph % (Auto) (10.0-50.0) % [place] % (Auto) (2.0-14.0) % Eos % (Auto) (0.0-5.0) % Baso % (Auto) (0.0-2.0) % Neut # (Auto) (1.40-7.00) K/uL Lymph # (Auto) (0.50-3.50) K/uL [place] # (Auto) (0.00-1.00) K/uL Eos # (Auto) (0.00-0.50) K/uL Baso # (Auto) (0.00-0.20) K/uL D-Dimer, Quantitative (0-400) ng/mL Sodium (136-145) mmol/L Potassium (3.5-5.1) mmol/L Chloride (98-107) mmol/L Carbon Dioxide (21.0-32.0) mmol/L BUN (7-18) mg/dL Creatinine (0.51-1.17) mg/dL Est Cr Clr Drug Dosing mL/min Estimated GFR (MDRD) mL/min Glucose (74-106) mg/dL POC Glucose 80 92 95 (65-110) mg/dl Calcium (8.5-10.1) mg/dL Total Bilirubin (0.2-1.0) mg/dL AST (15-37) U/L ALT (12-78) U/L Alkaline Phosphatase (46-116) IU/L Creatine Kinase (26-308) U/L Creatine Kinase Index (0.0-2.5) % CK-MB (CK-2) (0.00-3.60) ng/mL Troponin I (0.000-0.056) ng/mL NT-Pro-B Natriuret Pep (0-125) pg/mL Total Protein (6.4-8.2) g/dL Albumin (3.4-5.0) g/dL 08/27/17 08/27/17 08/27/17 Range/Units 07:11 07:11 07:11 WBC 11.6 H (4.0-10.2) K/uL RBC 3.07 L (3.77-5.09) M/uL Hgb 10.0 L D (11.7-15.5) g/dL Hct 31.3 L (34.0-46.0) % MCV 102.0 H (84.0-98.0) fL MCH 32.6 (28.2-33.3) pg MCHC 31.9 (31.7-36.0) g/dL RDW 13.5 (11.2-14.1) % Plt Count 235 (150-350) K/uL Neut % (Auto) 76.3 (45.0-80.0) % Lymph % (Auto) 16.5 (10.0-50.0) % Red[place] % (Auto) 5.1 (2.0-14.0) % Eos % (Auto) 2.0 (0.0-5.0) % Baso % (Auto) 0.1 (0.0-2.0) % Neut # (Auto) 8.83 H (1.40-7.00) K/uL Lymph # (Auto) 1.91 (0.50-3.50) K/uL [place] # (Auto) 0.59 (0.00-1.00) K/uL Eos # (Auto) 0.23 (0.00-0.50) K/uL Baso # (Auto) 0.01 (0.00-0.20) K/uL D-Dimer, Quantitative 450 H (0-400) ng/mL Sodium 149 H (136-145) mmol/L Potassium 3.4 L (3.5-5.1) mmol/L Chloride 113 H (98-107) mmol/L Carbon Dioxide 26.7 (21.0-32.0) mmol/L BUN 30 H (7-18) mg/dL Creatinine 0.69 (0.51-1.17) mg/dL Est Cr Clr Drug Dosing 49.82 mL/min Estimated GFR (MDRD) > 60 mL/min Glucose 99 (74-106) mg/dL POC Glucose (65-110) mg/dl Calcium 8.9 (8.5-10.1) mg/dL Total Bilirubin 0.2 (0.2-1.0) mg/dL AST 13 L (15-37) U/L ALT 12 (12-78) U/L Alkaline Phosphatase 100 (46-116) IU/L Creatine Kinase 15 L (26-308) U/L Creatine Kinase Index 0.0 (0.0-2.5) % CK-MB (CK-2) 0.00 (0.00-3.60) ng/mL Troponin I 0.000 (0.000-0.056) ng/mL NT-Pro-B Natriuret Pep 722 H (0-125) pg/mL Total Protein 6.4 (6.4-8.2) g/dL Albumin 2.4 L (3.4-5.0) g/dL 08/27/17 Range/Units 07:23 WBC (4.0-10.2) K/uL RBC (3.77-5.09) M/uL Hgb (11.7-15.5) g/dL Hct (34.0-46.0) % MCV (84.0-98.0) fL MCH (28.2-33.3) pg MCHC (31.7-36.0) g/dL RDW (11.2-14.1) % Plt Count (150-350) K/uL Neut % (Auto) (45.0-80.0) % Lymph % (Auto) (10.0-50.0) % Redwood % (Auto) (2.0-14.0) % Eos % (Auto) (0.0-5.0) % Baso % (Auto) (0.0-2.0) % Neut # (Auto) (1.40-7.00) K/uL Lymph # (Auto) (0.50-3.50) K/uL [place] # (Auto) (0.00-1.00) K/uL Eos # (Auto) (0.00-0.50) K/uL Baso # (Auto) (0.00-0.20) K/uL D-Dimer, Quantitative (0-400) ng/mL Sodium (136-145) mmol/L Potassium (3.5-5.1) mmol/L Chloride (98-107) mmol/L Carbon Dioxide (21.0-32.0) mmol/L BUN (7-18) mg/dL Creatinine (0.51-1.17) mg/dL Est Cr Clr Drug Dosing mL/min Estimated GFR (MDRD) mL/min Glucose (74-106) mg/dL POC Glucose 80 (65-110) mg/dl Calcium (8.5-10.1) mg/dL Total Bilirubin (0.2-1.0) mg/dL AST (15-37) U/L ALT (12-78) U/L Alkaline Phosphatase (46-116) IU/L Creatine Kinase (26-308) U/L Creatine Kinase Index (0.0-2.5) % CK-MB (CK-2) (0.00-3.60) ng/mL Troponin I (0.000-0.056) ng/mL NT-Pro-B Natriuret Pep (0-125) pg/mL Total Protein (6.4-8.2) g/dL Albumin (3.4-5.0) g/dL Med Orders - Current: Current Medications Acetaminophen (Tylenol) 650 mg PO TID [facility] Last Admin: 08/27/17 09:00 Dose: Not Given Acetaminophen (Tylenol) 650 mg PO Q4H PRN PRN Reason: Pain/Fever Albuterol (Proventil Neb Soln) 2.5 mg INH Q2H PRN PRN Reason: SHORTNESS OF BREATH Albuterol/Ipratropium (Duoneb 3.0-0.5 Mg/3 Ml) 3 ml NEB Q4HRRT PRN PRN Reason: Dyspnea Albuterol/Ipratropium (Duoneb 3.0-0.5 Mg/3 Ml) 3 ml NEB Q6HRRT [facility] Last Admin: 08/27/17 07:55 Dose: 3 ml Enoxaparin Sodium (Lovenox) 30 mg SUBCUT Q24H [facility] Last Admin: 08/26/17 12:37 Dose: 30 mg Gabapentin (Neurontin) 100 mg PO TID [facility] Last Admin: 08/27/17 09:00 Dose: Not Given Ceftriaxone Sodium 1 gm/ (Sodium Chloride) 100 mls @ 200 mls/hr IV Q12H [facility] Last Admin: 08/27/17 01:45 Dose: 200 mls/hr Vancomycin HCl 1 gm/ Sodium (Chloride) 250 mls @ 165 mls/hr IV Q24H [facility] Last Admin: 08/26/17 20:49 Dose: 165 mls/hr Ibuprofen (Motrin) 400 mg PO Q6H PRN PRN Reason: Pain Levetiracetam (Keppra) 1,000 mg PO BID [facility] Last Admin: 08/27/17 09:00 Dose: Not Given Magnesium Hydroxide (Milk Of Magnesia) 30 ml PO DAILY PRN PRN Reason: Heartburn Multivitamins/Minerals/Vitamin C (Tab-A-Vitaliy) 1 tab PO DAILY [facility] Last Admin: 08/27/17 09:00 Dose: Not Given Lacosamide [Vimpat] (50 Mg Tablets) 50 mg PO BID [facility] Last Admin: 08/27/17 09:00 Dose: Not Given Lurasidone Hcl [ Latuda] 80 Mg Tablets 80 mg PO BEDTIME [facility] Last Admin: 08/26/17 20:49 Dose: 80 mg Pantoprazole Sodium (Protonix) 40 mg PO DAILY [facility] Last Admin: 08/27/17 09:00 Dose: Not Given Pneumococcal Polyvalent Vaccine (Pneumovax 23) 0.5 ml IM .ONCE ONE Stop: 08/26/17 13:04 Polyethylene Glycol (Miralax) 17 gm PO BEDTIME [facility] Last Admin: 08/26/17 20:49 Dose: 17 gm Potassium Chloride (Klor-Con M20) 20 meq PO BID [facility] Last Admin: 08/27/17 09:00 Dose: Not Given Quetiapine Fumarate (Seroquel) 300 mg PO BEDTIME [facility] Last Admin: 08/26/17 20:50 Dose: 300 mg Sodium Chloride (Saline Flush) 10 ml FLUSH ASDIRECTED PRN PRN Reason: Keep Vein Open Last Admin: 08/27/17 01:49 Dose: 10 ml Vancomycin HCl (Pharmacy To Dose - Vancomycin) 1 dose .XX ASDIRECTED BARBARA Discontinued Medications Albuterol/Ipratropium (Duoneb 3.0-0.5 Mg/3 Ml) 3 ml NEB ONETIME ONE Stop: 08/24/17 22:44 Last Admin: 08/24/17 23:02 Dose: 3 ml Furosemide (Lasix) Confirm Administered Dose 20 mg .ROUTE .STK-MED ONE Stop: 08/24/17 21:37 Last Admin: 08/24/17 21:39 Dose: 10 mg Furosemide (Lasix) 40 mg IVPUSH NOW ONE Stop: 08/24/17 21:42 Last Admin: 08/24/17 21:53 Dose: 30 mg Furosemide (Lasix) 60 mg IVPUSH NOW ONE Stop: 08/26/17 11:40 Last Admin: 08/26/17 12:36 Dose: 60 mg Ceftriaxone Sodium 1 gm/ (Sodium Chloride) 100 mls @ 200 mls/hr IV Q12H [facility] Last Admin: 08/25/17 03:07 Dose: Not Given Vancomycin HCl 1 gm/ Sodium (Chloride) 250 mls @ 165 mls/hr IV ONETIME ONE Stop: 08/25/17 01:30 Last Admin: 08/25/17 00:16 Dose: 165 mls/hr Sodium Chloride (Normal Saline) 1,000 mls @ 150 mls/hr IV ASDIRECTED [facility] Last Admin: 08/26/17 02:09 Dose: 150 mls/hr Sodium Chloride (Normal Saline) 1,000 mls @ 150 mls/hr IV ASDIRECTED [facility] Multivitamins/Minerals/Vitamin C (Tab-A-Vitaliy) 1 tab PO DAILY [facility] Last Admin: 08/25/17 03:10 Dose: Not Given Non-Formulary Medication (Ranitidine Hcl [Zantac]) 150 mg PO BID [facility] Potassium Chloride (Klor-Con 10) 10 meq PO DAILY [facility] Last Admin: 08/26/17 09:12 Dose: 10 meq Potassium Chloride (Klor-Con M20) 20 meq PO ONETIME ONE Stop: 08/26/17 11:41 Last Admin: 08/26/17 12:37 Dose: 20 meq Quetiapine Fumarate (Seroquel) 100 mg PO BID [facility] Last Admin: 08/26/17 09:13 Dose: 100 mg - Exam Quality Assessment: Supplemental Oxygen, Urine Catheter General: Alert, Mild Distress HEENT: Pupils Equal, Pupils Reactive, EOMI, Mucous Membr. Moist/[place] Neck: Supple Lungs: Decreased Breath Sounds, Rales Cardiovascular: Regular Rate, Regular Rhythm GI/Abdominal Exam: Normal Bowel Sounds, Soft, Non-Tender, No Organomegaly, No Distention, No Abnormal Bruit, No Mass, Pelvis Stable (Female) Exam: Deferred Back Exam: Normal Inspection, Full Range of Motion Extremities: Arm Pain, Limited Range of Motion Skin: Warm, Dry, Intact Wound/Incisions: Healing Well Neurological: No New Focal Deficit - Problem List & Annotations (1) CHF (congestive heart failure) SNOMED Code(s): 16718023 Code(s): I50.9 - HEART FAILURE, UNSPECIFIED Status: Acute Priority: High Current Visit: Yes Qualifiers: Congestive heart failure type: unspecified congestive heart failure type Congestive heart failure chronicity: acute on chronic Qualified Code(s): I50.9 - Heart failure, unspecified Annotation/Comment:: No chest pain or anginal complaints. No further cardiac workup, including echocardiogram, cardiology consultation, etc. Acute on chronic CHF by history with repeat blood work and chest x-ray in the a.m. IV Lasix today with possible continuation tomorrow per Dr. Pablo, who will resume care at that time. IV fluids will be discontinued secondary to her CHF with additional decrease of her Seroquel therapy for the same reason. Long-term prognosis extremely poor (2) Pneumonia SNOMED Code(s): 877584959 Code(s): J18.9 - PNEUMONIA, UNSPECIFIED ORGANISM Status: Acute Priority: High Current Visit: Yes Onset Date: Unknown Qualifiers: Pneumonia type: aspiration pneumonia Laterality: bilateral Lung location : lower lobe of lung Annotation/Comment:: Based on history of dysphagia suspect aspiration pneumonia. Continue current IV Rocephin and vancomycin therapy. Attempt to obtain sputum. Previous x-ray revealed bilateral basal pneumonia, although note history of CHF as below. Continue to observe blood pressure closely secondary to some hypotension with only one dose of IV Lasix given today. Initiate nebulizer therapy (3) Hypoxemia SNOMED Code(s): 586105596 Code(s): R09.02 - HYPOXEMIA Status: Acute Current Visit: Yes Annotation /Comment:: Hypoxia secondary to CHF and pneumonia patient diuresed and started on antibiotics (4) Bacterial UTI SNOMED Code(s): 847220706 Code(s): N39.0 - URINARY TRACT INFECTION, SITE NOT SPECIFIED; A49.9 - BACTERIAL INFECTION, UNSPECIFIED Status: Acute Current Visit: Yes (5) UTI (urinary tract infection) SNOMED Code(s): 11398989 Code(s): N39.0 - URINARY TRACT INFECTION, SITE NOT SPECIFIED Status: Acute Priority: Medium Current Visit: Yes Onset Date: ~08/24/17 Qualifiers: Urinary tract infection type: acute cystitis Hematuria presence: without hematuria Qualified Code(s): N30.00 - Acute cystitis without hematuria Annotation/Comment:: Possible UTI, however note contamination by culture. Patient is urinary incontinent. Note Rocephin and vancomycin therapy as above [id number], possible Escherichia coli will continue antibiotics urine obtained cath. specimen - Problem List Review Problem List Initiated/Reviewed/Updated: Yes - My Orders Last 24 Hours: My Active Orders 08/26/17 10:19 Vital Signs [RC] Q6HR 08/26/17 13:03 Pneumococcal Polyvalent-23 Vac [Pneumovax 23] 0.5 ml IM .ONCE ONE 08/27/17 20:30 VANCOMYCIN TROUGH [CHEM] Routine - Assessment Assessment:: As above - Plan Plan:: As above. Extensive precautions were given to the patient, who is in agreement with the treatment plan. We'll continue antibiotics and plan as ordered we'll repeat labs and x-ray
[2017-08-27] MEDS: Enoxaparin 30 MG/0.3 ML Syringe SUBCUT SCH (12:58)
[2017-08-27] MEDS: QUEtiapine 100 MG Tab PO SCH (21:20)
[2017-08-27] MEDS: LURASIDONE HCL 80 MG PO SCH (21:20)
[2017-08-27] MEDS: Polyethylene Glycol 3350 Powder 17 GM Packet PO SCH (21:20)
[2017-08-28] MEDS: cefTRIAXone 1 GM in Sodium Chloride 0.9% 100 ML IV SCH (01:51)
[2017-08-28] MEDS: Albuterol/Ipratropium 3.0-0.5 MG/3 ML Neb Soln NEB SCH ×2 (01:52→08:44)
[2017-08-28] MEDS: Sodium Chloride 0.9% 10 ML Syringe FLUSH PRN ×2 (01:54→08:45)
[2017-08-28 07:36] LABS: CHLORIDE,CL 114 mmol/L (98-107); SODIUM,NA 150 mmol/L (136-145)
[2017-08-28 08:11] VITALS: BP 150/70
--- NOTE | 2017-08-28 09:08 | PCM.DCSUM1 ---
Discharge Summary - Hospital Course HPI Initial Comments: See emergency room note/admission H&P Brief History: See emergency room note/admission H&P - Discharge Data Discharge Date: 08/28/17 Discharge Disposition: DC/Tfer to [facility] Condition: Critical - Discharge Diagnosis/Problem(s) (1) Pneumonia SNOMED Code(s): 826351021 ICD Code: J18.9 - PNEUMONIA, UNSPECIFIED ORGANISM Status: Acute Priority : High Current Visit: Yes Onset Date: Unknown Problem Details: Patient is no longer able to swallow medications with family requesting comfort care only with no further aggressive medical therapy for her pneumonia, UTI, heart disease , etc. Hospice consultation has already been ordered for evaluation of the patient shortly after readmission back into the half-way. 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 Prognosis is extremely poor. Based on history of dysphagia suspect aspiration pneumonia. Note previous aggressive IV Rocephin and vancomycin therapy. Previous x-ray revealed bilateral basal pneumonia, although note history of CHF as below. Aggressive nebulizer therapy was also initiated Qualifiers: Pneumonia type: aspiration pneumonia Laterality: bilateral Lung location : lower lobe of lung (2) CHF (congestive heart failure) SNOMED Code(s): 54815497 ICD Code: I50.9 - HEART FAILURE, UNSPECIFIED Status: Acute Priority: High Current Visit: Yes Problem Details: No apparent chest pain or anginal complaints during this hospitalization, however patient is a poor historian as above. IV Lasix given during this hospitalization. No further cardiac workup, including echocardiogram, cardiology consultation, etc. secondary to her comfort care status. IV fluids initially given during hospitalization were discontinued secondary to her CHF with additional decrease of her Seroquel therapy for the same reason. Long-term prognosis extremely poor as above. Subcutaneous Lovenox was given during this hospitalization for DVT prophylaxis Qualifiers: Congestive heart failure type: unspecified congestive heart failure type Congestive heart failure chronicity: acute on chronic Qualified Code(s): I50.9 - Heart failure, unspecified (3) Dysphagia SNOMED Code(s): 41027399 ICD Code: R13.10 - DYSPHAGIA, UNSPECIFIED Status: Acute Priority: High Current Visit: Yes Onset Date: ~08/26/17 Problem Details: Some evidence of dysphagia per nursing staff this morning. Patient started on a dysphagia diet with aspiration precautions. Secondary to her comfort care status only no extensive further workup, including swallowing studies, speech therapy consultation, etc. for now Qualifiers: Dysphagia type: unspecified Qualified Code(s): R13.10 - Dysphagia, unspecified (4) Comfort measures only status SNOMED Code(s): 07569569561941 ICD Code: Z51.5 - ENCOUNTER FOR PALLIATIVE CARE Status: Chronic Priority : Medium Current Visit: Yes Problem Details: As above (5) Diabetes mellitus SNOMED Code(s): 34117717 ICD Code: E11.9 - TYPE 2 DIABETES MELLITUS WITHOUT COMPLICATIONS Status: Acute Current Visit: Yes Problem Details: Accu-Cheks stable Qualifiers: Diabetes mellitus type: type 2 Diabetes mellitus complication status: without complication Diabetes mellitus mcc insulin use: without mcc use Qualified Code(s): E11.9 - Type 2 diabetes mellitus without complications (6) Dementia SNOMED Code(s): 38075318 ICD Code: F03.90 - UNSPECIFIED DEMENTIA WITHOUT BEHAVIORAL DISTURBANCE Status: Chronic Priority: Medium Current Visit: Yes Problem Details: As above Qualifiers: Dementia type: unspecified type Dementia behavioral disturbance: with behavioral disturbance Qualified Code(s): F03.91 - Unspecified dementia with behavioral disturbance (7) Peptic reflux disease SNOMED Code(s): 30089118 ICD Code: K21.9 - GASTRO-ESOPHAGEAL REFLUX DISEASE WITHOUT ESOPHAGITIS Status: Chronic Priority: Medium Current Visit: Yes Problem Details: No recent abdominal pain or evidence of GI bleed. (8) Hypokalemia SNOMED Code(s): 23709743 ICD Code: E87.6 - HYPOKALEMIA Status: Acute Priority: High Current Visit: Yes Onset Date: 08/24/17 Problem Details: No further aggressive blood work, etc. with potassium chloride given during this hospitalization (9) UTI (urinary tract infection) SNOMED Code(s): 98197182 ICD Code: N39.0 - URINARY TRACT INFECTION, SITE NOT SPECIFIED Status: Acute Priority: Medium Current Visit: Yes Onset Date: ~08/24/17 Problem Details: UTI, however note initial evidence of contamination by culture although Escherichia coli infection eventually diagnosed. Patient is urinary incontinent. Note Rocephin and vancomycin therapy as above Qualifiers: Urinary tract infection type: acute cystitis Hematuria presence: without hematuria Qualified Code(s): N30.00 - Acute cystitis without hematuria - Patient Summary/Data Operative Procedure(s) Performed: None Complications: None Consults: Hospice after discharge Labs Pending at D/C: Final urine and blood culture results Recommended Follow-up Testing/Procedures: None Planned Operative Procedure(s) after DC: None Hospital Course: Patient was noted to inpatient/acute care for treatment of suspected aspiration pneumonia with additional concomitant UTI diagnosed during this hospitalization as above. Patient did receive aggressive IV Rocephin and IV vancomycin therapy with additional aggressive nebulizer therapy. Note increasing problems with [place] during this hospitalization with patient unable to take oral medications at discharge. Patient be placed in hospice care shortly as above - Patient Instructions Diet: Fluid Restriction (As below with strict aspiration precautions) Diet, Other: Phase 3 dysphagia with nectar thickened liquids as tolerated, Fluid Restriction: 2000 mL Activity: As Tolerated (Strict fall precautions) Driving: Do Not Drive Showering/Bathing: May Shower (With assistance) Notify Provider of: Fever, Increased Pain, Nausea and/or Vomiting Other/Special Instructions: 1. Hospice care consultation shortly after admission as already arranged. 2. Standard hospice orders after hospice admission. 3. Contact regular provider concerning instructions about follow- up evaluation/visit, any blood work, etc. 4. May hold oral medications, if unable to swallow safely - Discharge Plan Prescriptions/Med Rec: Albuterol/Ipratropium [DuoNeb 3.0-0.5 MG/3 ML] 3 ml NEB Q6HRRT #60 neb Amoxicillin/Clavulanate K [Augmentin 600-42.9 MG/5 ML Susp] 600 mg PO BID #100 ml Home Medications: Home Meds Acetaminophen [Tylenol] 650 mg PO Q4H PRN 08/24/17 [History] Acetaminophen [Tylenol] 650 mg PO TID 08/24/17 [History] Bisacodyl 10 mg RC Q5D PRN 08/24/17 [History] Bisacodyl [Dulcolax] 10 mg PO DAILY PRN 08/24/17 [History] Ibuprofen 400 mg PO Q6H PRN 08/24/17 [History] Magnesium Hydroxide [Milk of Magnesia] 30 ml PO DAILY PRN 08/24/17 [History] Polyethylene Glycol 3350 [Miralax] 17 gm PO BEDTIME 08/24/17 [History] Potassium Chloride [Klor-Con 10] 10 meq PO DAILY 08/24/17 [History] Ranitidine HCl [Zantac] 150 mg PO BID 08/24/17 [History] levETIRAcetam [Keppra] 1,000 mg PO BID 08/24/17 [History] risperiDONE [Risperdal] 37.5 mg IM Q14D 08/24/17 [History] Albuterol/Ipratropium [DuoNeb 3.0-0.5 MG/3 ML] 3 ml NEB Q4HRRT PRN #1 neb [Rx] Albuterol/Ipratropium [DuoNeb 3.0-0.5 MG/3 ML] 3 ml NEB Q6HRRT #60 neb 08/28/17 [Rx] Amoxicillin/Clavulanate K [Augmentin 600-42.9 MG/5 ML Susp] 600 mg PO BID #100 ml 08/28/17 [Rx] Patient Handouts: Urinary Tract Infection, Adult, Heart Failure, [id number] Forms: ED Department Discharge Referrals: Sheets-Allie Metzger MD [Primary Care Provider] - - Discharge Summary/Plan Comment DC Time >30 min.: Yes (Coordination of care) Discharge Summary/Plan Comment: As above. Extensive precautions were given to the patient and half-way staff by our staff, who are in agreement with the treatment plan. - General Info Date of Service: 08/28/17 Admission Dx/Problem (Free Text: 1. Bilateral aspiration pneumonia Subjective Update: As below. 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 Denies: Tolerating Diet (Note recurrent aspiration), New Symptoms, Incentive Spirometry (Unable to perform) Numeric/FACES Score: 0 - Review of Systems General: Reports: Weakness (Stable generalized), Fatigue (Stable generalized), Appetite (Aspiration as above) HEENT: Reports: Post Nasal Drip Pulmonary: Reports: Cough, Wheezing (Improved). Denies: Shortness of Breath, Sputum Cardiovascular: Reports: No Symptoms. Denies: Chest Pain, Edema Gastrointestinal: Reports: No Symptoms. Denies: Abdominal Pain, Constipation, Diarrhea, Nausea, Vomiting Genitourinary: Reports: Incontinence Musculoskeletal: Reports: No Symptoms Skin: Reports: No Symptoms Neurological: Reports: Confusion (Stable chronic severe), Weakness (Stable) Psychiatric: Reports: Confusion (As above). Denies: Agitation, Hallucinations - Patient Data Vitals - Most Recent: Last Vital Signs Temp 36.6 C 08/28/17 08:00 Pulse 89 08/28/17 08:00 Resp 17 08/28/17 08:00 BP 150/70 H 08/28/17 08:00 Pulse Ox 90 L 08/28/17 08:00 Vital Signs - 24 hr 08/27/17 08/27/17 08/27/17 12:00 13:00 18:00 Temperature [ Axillary] Temperature [ 36.8 C 37.4 C Oral] Pulse, 93 92 89 Peripheral [ Right Pulse Oximetry] Respiratory 18 21 H Rate Blood Pressure 90/39 L 101/40 L 108/43 L [Left Upper Arm ] O2 Sat by Pulse 93 L 94 L Oximetry 08/28/17 08:00 Temperature [ 36.6 C Axillary] Temperature [ Oral] Pulse, 89 Peripheral [ Right Pulse Oximetry] Respiratory 17 Rate Blood Pressure 150/70 H [Left Upper Arm ] O2 Sat by Pulse 90 L Oximetry Weight - Most Recent: 67.132 kg I&O - Last 24 hours: Intake & Output 08/27/17 08/28/17 08/28/17 22:59 06:59 14:59 Output Total 200 Balance -200 Imaging Impressions - Last 24 hrs: pipelayer showed heart rate in the 80s with no ectopy or arrhythmia Chest x-ray, portable, on day of discharge was suboptimal and shows extremely rotation with moderate bilateral pulmonary infiltrates right greater than left with moderate cardiomegaly and probable concomitant CHF and pulmonary hypertension. Significant moderate to severe atelectasis of the right medial pulmonary region with significant worsening of chest x-ray findings when compared to serial x-rays during this hospitalization Lab Results - Last 24 hrs: Laboratory Results - last 24 hr 08/27/17 08/27/17 08/27/17 Range/Units 17:36 20:30 20:32 WBC (4.0-10.2) K/uL RBC (3.77-5.09) M/uL Hgb (11.7-15.5) g/dL Hct (34.0-46.0) % MCV (84.0-98.0) fL MCH (28.2-33.3) pg MCHC (31.7-36.0) g/dL RDW (11.2-14.1) % Plt Count (150-350) K/uL Neut % (Auto) (45.0-80.0) % Lymph % (Auto) (10.0-50.0) % [place]ake % (Auto) (2.0-14.0) % Eos % (Auto) (0.0-5.0) % Baso % (Auto) (0.0-2.0) % Neut # (Auto) (1.40-7.00) K/uL Lymph # (Auto) (0.50-3.50) K/uL [place] # (Auto) (0.00-1.00) K/uL Eos # (Auto) (0.00-0.50) K/uL Baso # (Auto) (0.00-0.20) K/uL Sodium (136-145) mmol/L Potassium (3.5-5.1) mmol/L Chloride (98-107) mmol/L Carbon Dioxide (21.0-32.0) mmol/L BUN (7-18) mg/dL Creatinine (0.51-1.17) mg/dL Est Cr Clr Drug Dosing mL/min Estimated GFR (MDRD) mL/min Glucose (74-106) mg/dL POC Glucose 106 97 (65-110) mg/dl Calcium (8.5-10.1) mg/dL Vancomycin Trough 8.8 L (10-20) ug/mL 08/28/17 08/28/17 08/28/17 Range/Units 05:11 07:00 07:04 WBC 9.3 (4.0-10.2) K/uL RBC 3.11 L (3.77-5.09) M/uL Hgb 10.0 L (11.7-15.5) g/dL Hct 31.6 L (34.0-46.0) % MCV 101.6 H (84.0-98.0) fL MCH 32.2 (28.2-33.3) pg MCHC 31.6 L (31.7-36.0) g/dL RDW 13.1 (11.2-14.1) % Plt Count 244 (150-350) K/uL Neut % (Auto) 67.9 (45.0-80.0) % Lymph % (Auto) 23.5 (10.0-50.0) % [place]ake % (Auto) 7.1 (2.0-14.0) % Eos % (Auto) 1.4 (0.0-5.0) % Baso % (Auto) 0.1 (0.0-2.0) % Neut # (Auto) 6.30 (1.40-7.00) K/uL Lymph # (Auto) 2.18 (0.50-3.50) K/uL [place] # (Auto) 0.66 (0.00-1.00) K/uL Eos # (Auto) 0.13 (0.00-0.50) K/uL Baso # (Auto) 0.01 (0.00-0.20) K/uL Sodium 150 H (136-145) mmol/L Potassium 3.1 L (3.5-5.1) mmol/L Chloride 114 H (98-107) mmol/L Carbon Dioxide 26.5 (21.0-32.0) mmol/L BUN 26 H (7-18) mg/dL Creatinine 0.56 (0.51-1.17) mg/dL Est Cr Clr Drug Dosing 61.39 mL/min Estimated GFR (MDRD) > 60 mL/min Glucose 110 H (74-106) mg/dL POC Glucose 105 (65-110) mg/dl Calcium 9.0 (8.5-10.1) mg/dL Vancomycin Trough (10-20) ug/mL Laboratory Tests 08/24/17 08/24/17 08/24/17 Range/Units 21:45 21:45 21:45 WBC 12.2 H (4.0-10.2) K/uL RBC 3.54 L (3.77-5.09) M/uL Hgb 11.5 L D (11.7-15.5) g/dL Hct 35.5 (34.0-46.0) % MCV 100.3 H D (84.0-98.0) fL MCH 32.5 (28.2-33.3) pg MCHC 32.4 (31.7-36.0) g/dL RDW 13.5 (11.2-14.1) % Plt Count 258 (150-350) K/uL Neut % (Auto) 80.9 H (45.0-80.0) % Lymph % (Auto) 12.7 (10.0-50.0) % [place] % (Auto) 5.2 (2.0-14.0) % Eos % (Auto) 1.1 (0.0-5.0) % Baso % (Auto) 0.1 (0.0-2.0) % Neut # (Auto) 9.88 H (1.40-7.00) K/uL Lymph # (Auto) 1.55 (0.50-3.50) K/uL [place] # (Auto) 0.63 (0.00-1.00) K/uL Eos # (Auto) 0.13 (0.00-0.50) K/uL Baso # (Auto) 0.01 (0.00-0.20) K/uL D-Dimer, Quantitative 296 (0-400) ng/mL Sodium (136-145) mmol/L Potassium (3.5-5.1) mmol/L Chloride (98-107) mmol/L Carbon Dioxide (21.0-32.0) mmol/L BUN (7-18) mg/dL Creatinine (0.51-1.17) mg/dL Est Cr Clr Drug Dosing mL/min Estimated GFR (MDRD) mL/min Glucose (74-106) mg/dL POC Glucose (65-110) mg/dl Calcium (8.5-10.1) mg/dL Total Bilirubin (0.2-1.0) mg/dL AST (15-37) U/L ALT (12-78) U/L Alkaline Phosphatase (46-116) IU/L Creatine Kinase (26-308) U/L Creatine Kinase Index (0.0-2.5) % CK-MB (CK-2) (0.00-3.60) ng/mL Troponin I (0.000-0.056) ng/mL NT-Pro-B Natriuret Pep (0-125) pg/mL Total Protein (6.4-8.2) g/dL Albumin (3.4-5.0) g/dL Specimen Type Urine Color Urine Appearance Urine pH (5.0-9.0) Ur Specific [place] (1.005-1.030) Urine Protein (NEGATIVE) mg/dL Urine Glucose (UA) (NEGATIVE) mg/dL Urine Ketones (NEGATIVE) mg/dL Urine Occult Blood (NEGATIVE) Urine Nitrite (NEGATIVE) Urine Bilirubin (NEGATIVE) Urine Urobilinogen (0.2-1.0) E.U./dL Ur Leukocyte Esterase (NEGATIVE) Urine RBC /HPF Urine WBC /HPF Ur Epithelial Cells /LPF Urine Bacteria (NONE TO FEW) /HPF Vancomycin Trough (10-20) ug/mL 08/24/17 08/24/17 08/25/17 Range/Units 21:45 22:18 07:35 WBC (4.0-10.2) K/uL RBC (3.77-5.09) M/uL Hgb (11.7-15.5) g/dL Hct (34.0-46.0) % MCV (84.0-98.0) fL MCH (28.2-33.3) pg MCHC (31.7-36.0) g/dL RDW (11.2-14.1) % Plt Count (150-350) K/uL Neut % (Auto) (45.0-80.0) % Lymph % (Auto) (10.0-50.0) % [place] % (Auto) (2.0-14.0) % Eos % (Auto) (0.0-5.0) % Baso % (Auto) (0.0-2.0) % Neut # (Auto) (1.40-7.00) K/uL Lymph # (Auto) (0.50-3.50) K/uL [place] # (Auto) (0.00-1.00) K/uL Eos # (Auto) (0.00-0.50) K/uL Baso # (Auto) (0.00-0.20) K/uL D-Dimer, Quantitative (0-400) ng/mL Sodium 144 (136-145) mmol/L Potassium 3.2 L (3.5-5.1) mmol/L Chloride 110 H (98-107) mmol/L Carbon Dioxide 22.8 (21.0-32.0) mmol/L BUN 36 H (7-18) mg/dL Creatinine 0.97 (0.51-1.17) mg/dL Est Cr Clr Drug Dosing 35.44 mL/min Estimated GFR (MDRD) 56 mL/min Glucose 133 H (74-106) mg/dL POC Glucose (65-110) mg/dl Calcium 8.9 (8.5-10.1) mg/dL Total Bilirubin (0.2-1.0) mg/dL AST (15-37) U/L ALT (12-78) U/L Alkaline Phosphatase (46-116) IU/L Creatine Kinase (26-308) U/L Creatine Kinase Index (0.0-2.5) % CK-MB (CK-2) (0.00-3.60) ng/mL Troponin I (0.000-0.056) ng/mL NT-Pro-B Natriuret Pep (0-125) pg/mL Total Protein (6.4-8.2) g/dL Albumin (3.4-5.0) g/dL Specimen Type [place] Urine Color Yellow Urine Appearance Cloudy Urine pH 6.0 (5.0-9.0) Ur Specific [place] 1.025 (1.005-1.030) Urine Protein 30 H (NEGATIVE) mg/dL Urine Glucose (UA) Negative (NEGATIVE) mg/dL Urine Ketones 15 H (NEGATIVE) mg/dL Urine Occult Blood Small H (NEGATIVE) Urine Nitrite Negative (NEGATIVE) Urine Bilirubin Negative (NEGATIVE) Urine Urobilinogen 0.2 (0.2-1.0) E.U./dL Ur Leukocyte Esterase Small H (NEGATIVE) Urine RBC 5-10 H /HPF Urine WBC 20-30 H /HPF Ur Epithelial Cells Moderate H /LPF Urine Bacteria Many H (NONE TO FEW) /HPF Vancomycin Trough (10-20) ug/mL 08/25/17 08/25/17 08/26/17 Range/Units 07:35 22:06 07:51 WBC 19.1 H (4.0-10.2) K/uL RBC 3.74 L (3.77-5.09) M/uL Hgb 12.1 (11.7-15.5) g/dL Hct 37.1 (34.0-46.0) % MCV 99.2 H (84.0-98.0) fL MCH 32.4 (28.2-33.3) pg MCHC 32.6 (31.7-36.0) g/dL RDW 13.6 (11.2-14.1) % Plt Count 256 (150-350) K/uL Neut % (Auto) 86.9 H (45.0-80.0) % Lymph % (Auto) 7.6 L (10.0-50.0) % [place]ake % (Auto) 5.3 (2.0-14.0) % Eos % (Auto) 0.1 (0.0-5.0) % Baso % (Auto) 0.1 (0.0-2.0) % Neut # (Auto) 16.60 H (1.40-7.00) K/uL Lymph # (Auto) 1.44 (0.50-3.50) K/uL [place] # (Auto) 1.01 H (0.00-1.00) K/uL Eos # (Auto) 0.01 (0.00-0.50) K/uL Baso # (Auto) 0.01 (0.00-0.20) K/uL D-Dimer, Quantitative (0-400) ng/mL Sodium (136-145) mmol/L Potassium (3.5-5.1) mmol/L Chloride (98-107) mmol/L Carbon Dioxide (21.0-32.0) mmol/L BUN (7-18) mg/dL Creatinine (0.51-1.17) mg/dL Est Cr Clr Drug Dosing mL/min Estimated GFR (MDRD) mL/min Glucose (74-106) mg/dL POC Glucose 117 H 84 (65-110) mg/dl Calcium (8.5-10.1) mg/dL Total Bilirubin (0.2-1.0) mg/dL AST (15-37) U/L ALT (12-78) U/L Alkaline Phosphatase (46-116) IU/L Creatine Kinase (26-308) U/L Creatine Kinase Index (0.0-2.5) % CK-MB (CK-2) (0.00-3.60) ng/mL Troponin I (0.000-0.056) ng/mL NT-Pro-B Natriuret Pep (0-125) pg/mL Total Protein (6.4-8.2) g/dL Albumin (3.4-5.0) g/dL Specimen Type Urine Color Urine Appearance Urine pH (5.0-9.0) Ur Specific [place] (1.005-1.030) Urine Protein (NEGATIVE) mg/dL Urine Glucose (UA) (NEGATIVE) mg/dL Urine Ketones (NEGATIVE) mg/dL Urine Occult Blood (NEGATIVE) Urine Nitrite (NEGATIVE) Urine Bilirubin (NEGATIVE) Urine Urobilinogen (0.2-1.0) E.U./dL Ur Leukocyte Esterase (NEGATIVE) Urine RBC /HPF Urine WBC /HPF Ur Epithelial Cells /LPF Urine Bacteria (NONE TO FEW) /HPF Vancomycin Trough (10-20) ug/mL 08/26/17 08/26/17 08/26/17 Range/Units 12:50 17:18 21:01 WBC (4.0-10.2) K/uL RBC (3.77-5.09) M/uL Hgb (11.7-15.5) g/dL Hct (34.0-46.0) % MCV (84.0-98.0) fL MCH (28.2-33.3) pg MCHC (31.7-36.0) g/dL RDW (11.2-14.1) % Plt Count (150-350) K/uL Neut % (Auto) (45.0-80.0) % Lymph % (Auto) (10.0-50.0) % [place] % (Auto) (2.0-14.0) % Eos % (Auto) (0.0-5.0) % Baso % (Auto) (0.0-2.0) % Neut # (Auto) (1.40-7.00) K/uL Lymph # (Auto) (0.50-3.50) K/uL [place] # (Auto) (0.00-1.00) K/uL Eos # (Auto) (0.00-0.50) K/uL Baso # (Auto) (0.00-0.20) K/uL D-Dimer, Quantitative (0-400) ng/mL Sodium (136-145) mmol/L Potassium (3.5-5.1) mmol/L Chloride (98-107) mmol/L Carbon Dioxide (21.0-32.0) mmol/L BUN (7-18) mg/dL Creatinine (0.51-1.17) mg/dL Est Cr Clr Drug Dosing mL/min Estimated GFR (MDRD) mL/min Glucose (74-106) mg/dL POC Glucose 80 92 95 (65-110) mg/dl Calcium (8.5-10.1) mg/dL Total Bilirubin (0.2-1.0) mg/dL AST (15-37) U/L ALT (12-78) U/L Alkaline Phosphatase (46-116) IU/L Creatine Kinase (26-308) U/L Creatine Kinase Index (0.0-2.5) % CK-MB (CK-2) (0.00-3.60) ng/mL Troponin I (0.000-0.056) ng/mL NT-Pro-B Natriuret Pep (0-125) pg/mL Total Protein (6.4-8.2) g/dL Albumin (3.4-5.0) g/dL Specimen Type Urine Color Urine Appearance Urine pH (5.0-9.0) Ur Specific [place] (1.005-1.030) Urine Protein (NEGATIVE) mg/dL Urine Glucose (UA) (NEGATIVE) mg/dL Urine Ketones (NEGATIVE) mg/dL Urine Occult Blood (NEGATIVE) Urine Nitrite (NEGATIVE) Urine Bilirubin (NEGATIVE) Urine Urobilinogen (0.2-1.0) E.U./dL Ur Leukocyte Esterase (NEGATIVE) Urine RBC /HPF Urine WBC /HPF Ur Epithelial Cells /LPF Urine Bacteria (NONE TO FEW) /HPF Vancomycin Trough (10-20) ug/mL 08/27/17 08/27/17 08/27/17 Range/Units 07:11 07:11 07:11 WBC 11.6 H (4.0-10.2) K/uL RBC 3.07 L (3.77-5.09) M/uL Hgb 10.0 L D (11.7-15.5) g/dL Hct 31.3 L (34.0-46.0) % MCV 102.0 H (84.0-98.0) fL MCH 32.6 (28.2-33.3) pg MCHC 31.9 (31.7-36.0) g/dL RDW 13.5 (11.2-14.1) % Plt Count 235 (150-350) K/uL Neut % (Auto) 76.3 (45.0-80.0) % Lymph % (Auto) 16.5 (10.0-50.0) % [place] % (Auto) 5.1 (2.0-14.0) % Eos % (Auto) 2.0 (0.0-5.0) % Baso % (Auto) 0.1 (0.0-2.0) % Neut # (Auto) 8.83 H (1.40-7.00) K/uL Lymph # (Auto) 1.91 (0.50-3.50) K/uL [place] # (Auto) 0.59 (0.00-1.00) K/uL Eos # (Auto) 0.23 (0.00-0.50) K/uL Baso # (Auto) 0.01 (0.00-0.20) K/uL D-Dimer, Quantitative 450 H (0-400) ng/mL Sodium 149 H (136-145) mmol/L Potassium 3.4 L (3.5-5.1) mmol/L Chloride 113 H (98-107) mmol/L Carbon Dioxide 26.7 (21.0-32.0) mmol/L BUN 30 H (7-18) mg/dL Creatinine 0.69 (0.51-1.17) mg/dL Est Cr Clr Drug Dosing 49.82 mL/min Estimated GFR (MDRD) > 60 mL/min Glucose 99 (74-106) mg/dL POC Glucose (65-110) mg/dl Calcium 8.9 (8.5-10.1) mg/dL Total Bilirubin 0.2 (0.2-1.0) mg/dL AST 13 L (15-37) U/L ALT 12 (12-78) U/L Alkaline Phosphatase 100 (46-116) IU/L Creatine Kinase 15 L (26-308) U/L Creatine Kinase Index 0.0 (0.0-2.5) % CK-MB (CK-2) 0.00 (0.00-3.60) ng/mL Troponin I 0.000 (0.000-0.056) ng/mL NT-Pro-B Natriuret Pep 722 H (0-125) pg/mL Total Protein 6.4 (6.4-8.2) g/dL Albumin 2.4 L (3.4-5.0) g/dL Specimen Type Urine Color Urine Appearance Urine pH (5.0-9.0) Ur Specific [place] (1.005-1.030) Urine Protein (NEGATIVE) mg/dL Urine Glucose (UA) (NEGATIVE) mg/dL Urine Ketones (NEGATIVE) mg/dL Urine Occult Blood (NEGATIVE) Urine Nitrite (NEGATIVE) Urine Bilirubin (NEGATIVE) Urine Urobilinogen (0.2-1.0) E.U./dL Ur Leukocyte Esterase (NEGATIVE) Urine RBC /HPF Urine WBC /HPF Ur Epithelial Cells /LPF Urine Bacteria (NONE TO FEW) /HPF Vancomycin Trough (10-20) ug/mL 08/27/17 08/27/17 08/27/17 Range/Units 07:23 17:36 20:30 WBC (4.0-10.2) K/uL RBC (3.77-5.09) M/uL Hgb (11.7-15.5) g/dL Hct (34.0-46.0) % MCV (84.0-98.0) fL MCH (28.2-33.3) pg MCHC (31.7-36.0) g/dL RDW (11.2-14.1) % Plt Count (150-350) K/uL Neut % (Auto) (45.0-80.0) % Lymph % (Auto) (10.0-50.0) % [place] % (Auto) (2.0-14.0) % Eos % (Auto) (0.0-5.0) % Baso % (Auto) (0.0-2.0) % Neut # (Auto) (1.40-7.00) K/uL Lymph # (Auto) (0.50-3.50) K/uL [place] # (Auto) (0.00-1.00) K/uL Eos # (Auto) (0.00-0.50) K/uL Baso # (Auto) (0.00-0.20) K/uL D-Dimer, Quantitative (0-400) ng/mL Sodium (136-145) mmol/L Potassium (3.5-5.1) mmol/L Chloride (98-107) mmol/L Carbon Dioxide (21.0-32.0) mmol/L BUN (7-18) mg/dL Creatinine (0.51-1.17) mg/dL Est Cr Clr Drug Dosing mL/min Estimated GFR (MDRD) mL/min Glucose (74-106) mg/dL POC Glucose 80 106 (65-110) mg/dl Calcium (8.5-10.1) mg/dL Total Bilirubin (0.2-1.0) mg/dL AST (15-37) U/L ALT (12-78) U/L Alkaline Phosphatase (46-116) IU/L Creatine Kinase (26-308) U/L Creatine Kinase Index (0.0-2.5) % CK-MB (CK-2) (0.00-3.60) ng/mL Troponin I (0.000-0.056) ng/mL NT-Pro-B Natriuret Pep (0-125) pg/mL Total Protein (6.4-8.2) g/dL Albumin (3.4-5.0) g/dL Specimen Type Urine Color Urine Appearance Urine pH (5.0-9.0) Ur Specific [place] (1.005-1.030) Urine Protein (NEGATIVE) mg/dL Urine Glucose (UA) (NEGATIVE) mg/dL Urine Ketones (NEGATIVE) mg/dL Urine Occult Blood (NEGATIVE) Urine Nitrite (NEGATIVE) Urine Bilirubin (NEGATIVE) Urine Urobilinogen (0.2-1.0) E.U./dL Ur Leukocyte Esterase (NEGATIVE) Urine RBC /HPF Urine WBC /HPF Ur Epithelial Cells /LPF Urine Bacteria (NONE TO FEW) /HPF Vancomycin Trough 8.8 L (10-20) ug/mL 08/27/17 08/28/17 08/28/17 Range/Units 20:32 05:11 07:00 WBC 9.3 (4.0-10.2) K/uL RBC 3.11 L (3.77-5.09) M/uL Hgb 10.0 L (11.7-15.5) g/dL Hct 31.6 L (34.0-46.0) % MCV 101.6 H (84.0-98.0) fL MCH 32.2 (28.2-33.3) pg MCHC 31.6 L (31.7-36.0) g/dL RDW 13.1 (11.2-14.1) % Plt Count 244 (150-350) K/uL Neut % (Auto) 67.9 (45.0-80.0) % Lymph % (Auto) 23.5 (10.0-50.0) % [place] % (Auto) 7.1 (2.0-14.0) % Eos % (Auto) 1.4 (0.0-5.0) % Baso % (Auto) 0.1 (0.0-2.0) % Neut # (Auto) 6.30 (1.40-7.00) K/uL Lymph # (Auto) 2.18 (0.50-3.50) K/uL [place] # (Auto) 0.66 (0.00-1.00) K/uL Eos # (Auto) 0.13 (0.00-0.50) K/uL Baso # (Auto) 0.01 (0.00-0.20) K/uL D-Dimer, Quantitative (0-400) ng/mL Sodium 150 H (136-145) mmol/L Potassium 3.1 L (3.5-5.1) mmol/L Chloride 114 H (98-107) mmol/L Carbon Dioxide 26.5 (21.0-32.0) mmol/L BUN 26 H (7-18) mg/dL Creatinine 0.56 (0.51-1.17) mg/dL Est Cr Clr Drug Dosing 61.39 mL/min Estimated GFR (MDRD) > 60 mL/min Glucose 110 H (74-106) mg/dL POC Glucose 97 (65-110) mg/dl Calcium 9.0 (8.5-10.1) mg/dL Total Bilirubin (0.2-1.0) mg/dL AST (15-37) U/L ALT (12-78) U/L Alkaline Phosphatase (46-116) IU/L Creatine Kinase (26-308) U/L Creatine Kinase Index (0.0-2.5) % CK-MB (CK-2) (0.00-3.60) ng/mL Troponin I (0.000-0.056) ng/mL NT-Pro-B Natriuret Pep (0-125) pg/mL Total Protein (6.4-8.2) g/dL Albumin (3.4-5.0) g/dL Specimen Type Urine Color Urine Appearance Urine pH (5.0-9.0) Ur Specific [place] (1.005-1.030) Urine Protein (NEGATIVE) mg/dL Urine Glucose (UA) (NEGATIVE) mg/dL Urine Ketones (NEGATIVE) mg/dL Urine Occult Blood (NEGATIVE) Urine Nitrite (NEGATIVE) Urine Bilirubin (NEGATIVE) Urine Urobilinogen (0.2-1.0) E.U./dL Ur Leukocyte Esterase (NEGATIVE) Urine RBC /HPF Urine WBC /HPF Ur Epithelial Cells /LPF Urine Bacteria (NONE TO FEW) /HPF Vancomycin Trough (10-20) ug/mL 08/28/17 Range/Units 07:04 WBC (4.0-10.2) K/uL RBC (3.77-5.09) M/uL Hgb (11.7-15.5) g/dL Hct (34.0-46.0) % MCV (84.0-98.0) fL MCH (28.2-33.3) pg MCHC (31.7-36.0) g/dL RDW (11.2-14.1) % Plt Count (150-350) K/uL Neut % (Auto) (45.0-80.0) % Lymph % (Auto) (10.0-50.0) % [place] % (Auto) (2.0-14.0) % Eos % (Auto) (0.0-5.0) % Baso % (Auto) (0.0-2.0) % Neut # (Auto) (1.40-7.00) K/uL Lymph # (Auto) (0.50-3.50) K/uL Leake # (Auto) (0.00-1.00) K/uL Eos # (Auto) (0.00-0.50) K/uL Baso # (Auto) (0.00-0.20) K/uL D-Dimer, Quantitative (0-400) ng/mL Sodium (136-145) mmol/L Potassium (3.5-5.1) mmol/L Chloride (98-107) mmol/L Carbon Dioxide (21.0-32.0) mmol/L BUN (7-18) mg/dL Creatinine (0.51-1.17) mg/dL Est Cr Clr Drug Dosing mL/min Estimated GFR (MDRD) mL/min Glucose (74-106) mg/dL POC Glucose 105 (65-110) mg/dl Calcium (8.5-10.1) mg/dL Total Bilirubin (0.2-1.0) mg/dL AST (15-37) U/L ALT (12-78) U/L Alkaline Phosphatase (46-116) IU/L Creatine Kinase (26-308) U/L Creatine Kinase Index (0.0-2.5) % CK-MB (CK-2) (0.00-3.60) ng/mL Troponin I (0.000-0.056) ng/mL NT-Pro-B Natriuret Pep (0-125) pg/mL Total Protein (6.4-8.2) g/dL Albumin (3.4-5.0) g/dL Specimen Type Urine Color Urine Appearance Urine pH (5.0-9.0) Ur Specific [place] (1.005-1.030) Urine Protein (NEGATIVE) mg/dL Urine Glucose (UA) (NEGATIVE) mg/dL Urine Ketones (NEGATIVE) mg/dL Urine Occult Blood (NEGATIVE) Urine Nitrite (NEGATIVE) Urine Bilirubin (NEGATIVE) Urine Urobilinogen (0.2-1.0) E.U./dL Ur Leukocyte Esterase (NEGATIVE) Urine RBC /HPF Urine WBC /HPF Ur Epithelial Cells /LPF Urine Bacteria (NONE TO FEW) /HPF Vancomycin Trough (10-20) ug/mL [facility]ASHMI Results - Last 24 hrs: Microbiology 08/24/17 01:15 Blood - Venous - Lab Draw Aerobic Blood Culture - Preliminary NO GROWTH AFTER 3 DAYS 08/24/17 01:15 Blood - Venous - Lab Draw Anaerobic Blood Culture - Preliminary NO GROWTH AFTER 3 DAYS 08/24/17 00:45 Blood - Venous Aerobic Blood Culture - Preliminary NO GROWTH AFTER 3 DAYS 08/24/17 00:45 Blood - Venous Anaerobic Blood Culture - Preliminary NO GROWTH AFTER 3 DAYS 08/24/17 22:18 Urine, Catheterized Urine Culture - Preliminary Escherichia Coli Med Orders - Current: Current Medications Albuterol (Proventil Neb Soln) 2.5 mg INH Q2H PRN PRN Reason: SHORTNESS OF BREATH Albuterol/Ipratropium (Duoneb 3.0-0.5 Mg/3 Ml) 3 ml NEB Q4HRRT PRN PRN Reason: Dyspnea Albuterol/Ipratropium (Duoneb 3.0-0.5 Mg/3 Ml) 3 ml NEB Q6HRRT [facility] Last Admin: 08/28/17 01:52 Dose: 3 ml Enoxaparin Sodium (Lovenox) 30 mg SUBCUT Q24H [facility] Last Admin: 08/27/17 12:58 Dose: 30 mg Ceftriaxone Sodium 1 gm/ (Sodium Chloride) 100 mls @ 200 mls/hr IV Q12H [facility] Last Admin: 08/28/17 01:51 Dose: 200 mls/hr Vancomycin HCl 1 gm/ Sodium (Chloride) 250 mls @ 165 mls/hr IV Q12H [facility] Pneumococcal 13-Valent Conj Vacc (Prevnar 13) 0.5 ml IM .ONCE ONE Stop: 08/28/17 12:01 Sodium Chloride (Saline Flush) 10 ml FLUSH ASDIRECTED PRN PRN Reason: Keep Vein Open Last Admin: 08/28/17 01:54 Dose: 10 ml Vancomycin HCl (Pharmacy To Dose - Vancomycin) 1 dose .XX ASDIRECTED [facility] Discontinued Medications Acetaminophen (Tylenol) 650 mg PO TID [facility] Last Admin: 08/27/17 17:23 Dose: 650 mg Acetaminophen (Tylenol) 650 mg PO Q4H PRN PRN Reason: Pain/Fever Albuterol/Ipratropium (Duoneb 3.0-0.5 Mg/3 Ml) 3 ml NEB ONETIME ONE Stop: 08/24/17 22:44 Last Admin: 08/24/17 23:02 Dose: 3 ml Furosemide (Lasix) Confirm Administered Dose 20 mg .ROUTE .STK-MED ONE Stop: 08/24/17 21:37 Last Admin: 08/24/17 21:39 Dose: 10 mg Furosemide (Lasix) 40 mg IVPUSH NOW ONE Stop: 08/24/17 21:42 Last Admin: 08/24/17 21:53 Dose: 30 mg Furosemide (Lasix) 60 mg IVPUSH NOW ONE Stop: 08/26/17 11:40 Last Admin: 08/26/17 12:36 Dose: 60 mg Gabapentin (Neurontin) 100 mg PO TID [facility] Last Admin: 08/27/17 17:23 Dose: 100 mg Ceftriaxone Sodium 1 gm/ (Sodium Chloride) 100 mls @ 200 mls/hr IV Q12H [facility] Last Admin: 08/25/17 03:07 Dose: Not Given Vancomycin HCl 1 gm/ Sodium (Chloride) 250 mls @ 165 mls/hr IV ONETIME ONE Stop: 08/25/17 01:30 Last Admin: 08/25/17 00:16 Dose: 165 mls/hr Vancomycin HCl 1 gm/ Sodium (Chloride) 250 mls @ 165 mls/hr IV Q24H [facility] Stop: 08/27/17 23:30 Last Admin: 08/27/17 21:31 Dose: 165 mls/hr Sodium Chloride (Normal Saline) 1,000 mls @ 150 mls/hr IV ASDIRECTED [facility] Last Admin: 08/26/17 02:09 Dose: 150 mls/hr Sodium Chloride (Normal Saline) 1,000 mls @ 150 mls/hr IV ASDIRECTED [facility] Ibuprofen (Motrin) 400 mg PO Q6H PRN PRN Reason: Pain Levetiracetam (Keppra) 1,000 mg PO BID [facility] Last Admin: 08/27/17 17:23 Dose: 1,000 mg Magnesium Hydroxide (Milk Of Magnesia) 30 ml PO DAILY PRN PRN Reason: Heartburn Multivitamins/Minerals/Vitamin C (Tab-A-Vitaliy) 1 tab PO DAILY [facility] Last Admin: 08/25/17 03:10 Dose: Not Given Multivitamins/Minerals/Vitamin C (Tab-A-Vitaliy) 1 tab PO DAILY [facility] Last Admin: 08/27/17 09:00 Dose: Not Given Lacosamide [Vimpat] (50 Mg Tablets) 50 mg PO BID [facility] Last Admin: 08/27/17 17:22 Dose: 50 mg Lurasidone Hcl [ Latuda] 80 Mg Tablets 80 mg PO BEDTIME [facility] Last Admin: 08/27/17 21:20 Dose: Not Given Non-Formulary Medication (Ranitidine Hcl [Zantac]) 150 mg PO BID [facility] Pantoprazole Sodium (Protonix) 40 mg PO DAILY [facility] Last Admin: 08/27/17 09:00 Dose: Not Given Polyethylene Glycol (Miralax) 17 gm PO BEDTIME [facility] Last Admin: 08/27/17 21:20 Dose: Not Given Potassium Chloride (Klor-Con 10) 10 meq PO DAILY [facility] Last Admin: 08/26/17 09:12 Dose: 10 meq Potassium Chloride (Klor-Con M20) 20 meq PO ONETIME ONE Stop: 08/26/17 11:41 Last Admin: 08/26/17 12:37 Dose: 20 meq Potassium Chloride (Klor-Con M20) 20 meq PO BID [facility] Last Admin: 08/27/17 17:30 Dose: 20 meq Quetiapine Fumarate (Seroquel) 100 mg PO BID [facility] Last Admin: 08/26/17 09:13 Dose: 100 mg Quetiapine Fumarate (Seroquel) 300 mg PO BEDTIME [facility] Last Admin: 08/27/17 21:20 Dose: Not Given - Exam Quality Assessment: Reports: Supplemental Oxygen, DVT Prophylaxis (Lovenox). Denies: Urine Catheter, Skin Breakdown, Restraints General: Reports: Cooperative, Mild Distress. Denies: Oriented (Severe OBS) HEENT: Reports: Pupils Equal, Pupils Reactive, EOMI, Mucous Membr. Moist/[place] Neck: Reports: Supple, Trachea Midline, No JVD, No Thyromegaly. Denies: Lymphadenopathy Lungs: Reports: Normal Respiratory Effort, Decreased Breath Sounds (Bilateral), Rales (Moderate diffuse bilateral rales particularly in the bases). Denies: Rhonchi, Rub, Stridor, Wheezing Cardiovascular: Reports: Regular Rate, Regular Rhythm, No Murmurs. Denies: Gallops, Rubs GI/Abdominal Exam: Normal Bowel Sounds, Soft, Non-Tender, No Organomegaly, No Distention, No Abnormal Bruit, No Mass, Pelvis Stable, Other (Obese). No: Guarding (Female) Exam: Deferred Rectal (Female) Exam: Deferred Back Exam: Reports: Normal Inspection, Full Range of Motion. Denies: CVA Tenderness (L), CVA Tenderness (R), Muscle Spasm Extremities: Normal Inspection, Normal Range of Motion, Non-Tender, No Pedal Edema, Normal Capillary Refill. No: Phillip's Sign Skin: Reports: Warm, Dry, Intact Neurological: Reports: No New Focal Deficit Psy/Mental Status: Reports: Other (Moderate OBS as above). Denies: Agitated, Hallucinations, Withdrawal Symptoms *Q Meaningful Use (DIS) - VTE *Q VTE Criteria *Q: - Stroke *Q Stroke Criteria *Q: - AMI *Q AMI Criteria *Q:
[2017-08-28] MEDS ORDERED: Pneumococcal 13-Valent Conjugate Vaccine 0.5 ML Syringe IM ONE (12:00)
== END 2017-08-28 11:15 | DRG 178 ==
LOC: LL.ED 21:33 → LL.MS 23:57
PROVIDERS: ADMIT Family Medicine; ATTEND Family Medicine
DX: J18.9 Pneumonia, unspecified organism (principal); J69.0 Pneumonitis due to inhalation of food and vomit; N39.0 Urinary tract infection, site not specified; F03.91 Unspecified dementia, unspecified severity, with behavioral disturbance; I50.9 Heart failure, unspecified; Z86.73 Personal history of transient ischemic attack (TIA), and cerebral infarction without residual deficits; F03.90 Unspecified dementia, unspecified severity, without behavioral disturbance, psychotic disturbance, mood disturbance, and anxiety; R13.10 Dysphagia, unspecified; R09.02 Hypoxemia; B96.20 Unspecified Escherichia coli [E. coli] as the cause of diseases classified elsewhere; F09 Unspecified mental disorder due to known physiological condition; E11.9 Type 2 diabetes mellitus without complications; K21.9 Gastro-esophageal reflux disease without esophagitis; E87.6 Hypokalemia; Z51.5 Encounter for palliative care; Z88.5 Allergy status to narcotic agent; Z79.899 Other long term (current) drug therapy
CPT/HCPCS: 36415; 71010; 80053; 81001; 83880; 84484; 85025; 85379; 87040 ×2; 87086; 87088; 87186; 93005; 94640; 94761; 96374; 99285; J1940 ×2; J7050 ×2; 80048; 80202; 82550; 82553; 82962; A9270-GY; J0696; J1650; J3370; J7030